=== PATIENT | male | born 1965 ===

== ENCOUNTER 2021-08-12 23:29 | Inpatient (IN) ==
[2021-08-13] MEDS ORDERED: SODIUM CHLORIDE 0.9% 1,000 ML IV STA ×2 (00:02→05:47)
[2021-08-13 01:57] LABS: Basophils % 0.4 % (0.0-0.8); Eosinophils % 1.6 % (0.00-10.9); Hematocrit 32.7 VOL% (42.0-52.0); Hemoglobin 10.7 GM/DL (14.0-18.0); Immature Granulocytes % 0.4 %; Immature Granulocytes Absolute 0.01 #; Lymphocytes # 0.4 10*3/uL (1.4-4.0); Mean Corpuscular HGB Conc 32.7 GM/DL (32-36); Mean Corpuscular Volume 84.7 FL (87-102); Mean Platelet Volume 10.7 FL (9.6-12.0); Monocytes % 3.6 % (1.7-12.7); Platelet Count 57 T/CUMM (130-400); Red Blood Count 3.86 MC/CUMM (3.8-5.5); Red Cell Distribution Width 15.1 % (9.3-17.3); White Blood Count 2.5 T/CUMM (4-12)
[2021-08-13] MEDS ORDERED: THIAMINE INJ 100 MG, FOLIC ACID INJ 1 MG, MAGNESIUM SULF INJ 2 GM, MULTIVITAMIN INJ 10 ... IV ONE (02:05)
[2021-08-13 02:10] LABS: INR 1.2; PT Patient Result 13.4 SECS (10.5-12.0)
[2021-08-13 02:13] LABS: Albumin 2.7 G/DL (3.4-5.0); Bilirubin,Total 0.6 MG/DL (0.20-1.00); Calcium 7.1 MG/DL (8.5-10.1); Osmolality,Calculated 265.5 MOS/KG (273-304); Potassium 3.2 MMOL/L (3.5-5.1); Total Protein 6.3 G/DL (6.4-8.2)
[2021-08-13] MEDS ORDERED: DEXTROSE 50% 25 GM/50 ML VIAL IV PRN (03:06)
[2021-08-13] MEDS ORDERED: GLUCAGON 1 MG VIAL IM PRN (03:06)
[2021-08-13] MEDS ORDERED: ONDANSETRON 4 MG/2 ML VIAL IV PRN (03:15)
[2021-08-13] MEDS ORDERED: LORazepam 2 MG/1 ML VIAL IV PRN (03:20)
[2021-08-13] MEDS ORDERED: MULTIVITAMIN INJ 10 ML, THIAMINE INJ 100 MG in SODIUM CHLORIDE 0.9% 1,000 ML IV SCH (03:30)
[2021-08-13] MEDS ORDERED: THIAMINE INJ 100 MG, MULTIVITAMIN INJ 10 ML in SODIUM CHLORIDE 0.9% 1,000 ML IV SCH (03:30)
[2021-08-13 04:01] LABS: Albumin 2.4 G/DL (3.4-5.0); Bilirubin,Total 0.6 MG/DL (0.20-1.00); Calcium 6.9 MG/DL (8.5-10.1); Potassium 3.7 MMOL/L (3.5-5.1); Total Protein 5.7 G/DL (6.4-8.2)
[2021-08-13 04:56] LABS: Eosinophils # 0.1 10*3/uL (0.0-0.87); Eosinophils % 1.6 % (0.00-10.9); Hematocrit 33.2 VOL% (42.0-52.0); Hemoglobin 10.6 GM/DL (14.0-18.0); Immature Granulocytes % 0.7 %; Immature Granulocytes Absolute 0.02 #; Lymphocytes # 0.5 10*3/uL (1.4-4.0); Lymphocytes % 15.6 % (21.2-54.2); Mean Corpuscular HGB Conc 31.9 GM/DL (32-36); Mean Corpuscular Volume 85.3 FL (87-102); Monocytes % 4.9 % (1.7-12.7); Neutrophils % 77.2 % (38.7-73.9); Platelet Count 60 T/CUMM (130-400); Red Blood Count 3.89 MC/CUMM (3.8-5.5); Red Cell Distribution Width 15.2 % (9.3-17.3); White Blood Count 3.1 T/CUMM (4-12)
[2021-08-13 05:58] LABS: Platelet Estimate Decreased
[2021-08-13 05:59] LABS: Anisocytosis 2+; Burr Cells Few; Ovalocytes Few; Poikilocytosis Slight
[2021-08-13 06:00] LABS: Anisocytosis 2+; Burr Cells Few; Platelet Estimate Decreased; Tear Drop Cells Few
[2021-08-13] MEDS ORDERED: SODIUM CHLORIDE 0.9% 1,000 ML IV ONE (08:33)
[2021-08-13] MEDS ORDERED: PANTOPRAZOLE 40 MG TABLET PO SCH (09:00)
[2021-08-13] MEDS ORDERED: ENOXAPARIN 40 MG/0.4 ML SYRINGE SUBCUT SCH (09:00)
[2021-08-13] MEDS: THIAMINE 200 MG/2 ML VIAL IV SCH ×2 (11:23→20:13)
[2021-08-13] MEDS: PANTOPRAZOLE 40 MG VIAL IV SCH (11:23)
[2021-08-13] MEDS: DEXT 5% NACL 0.9% KCL 20 MEQ 20 MEQ/1,000 ML BAG IV SCH ×2 (11:23→18:06)
[2021-08-13] MEDS: SULFAMETHOX/TRIMETHOPRIM 800-160 MG TABLET PO SCH (13:13)
[2021-08-13] MEDS: MEROPENEM 500 MG in SODIUM CHLORIDE 0.9% 100 ML IV SCH ×3 (13:14→20:16)
[2021-08-13] MEDS: KETOROLAC 30 MG/1 ML VIAL IV PRN (18:03)
[2021-08-13] MEDS: chlordiazePOXIDE 10 MG CAPSULE PO SCH ×2 (19:05→20:11)
[2021-08-14] MEDS: DEXT 5% NACL 0.9% KCL 20 MEQ 20 MEQ/1,000 ML BAG IV SCH ×3 (02:39→20:25)
[2021-08-14] MEDS: MEROPENEM 500 MG in SODIUM CHLORIDE 0.9% 100 ML IV SCH ×3 (04:01→18:22)
[2021-08-14 05:33] LABS: Basophils % 0.2 % (0.0-0.8); Eosinophils # 0.1 10*3/uL (0.0-0.87); Eosinophils % 1.1 % (0.00-10.9); Hematocrit 34.2 VOL% (42.0-52.0); Hemoglobin 11.1 GM/DL (14.0-18.0); Immature Granulocytes % 0.2 %; Immature Granulocytes Absolute 0.01 #; Lymphocytes # 0.4 10*3/uL (1.4-4.0); Lymphocytes % 10.1 % (21.2-54.2); Mean Corpuscular HGB Conc 32.5 GM/DL (32-36); Mean Corpuscular Volume 86.1 FL (87-102); Mean Platelet Volume 11.9 FL (9.6-12.0); Monocytes % 9.2 % (1.7-12.7); Neutrophils % 79.2 % (38.7-73.9); Red Blood Count 3.97 MC/CUMM (3.8-5.5); Red Cell Distribution Width 15.6 % (9.3-17.3)
[2021-08-14 05:37] LABS: Platelet Count 52 T/CUMM (130-400); White Blood Count 4.4 T/CUMM (4-12)
[2021-08-14 06:08] LABS: Anisocytosis 1+; Burr Cells Few; Platelet Estimate Decreased
[2021-08-14 06:09] LABS: Ovalocytes Few
[2021-08-14 06:12] LABS: Albumin 2.5 G/DL (3.4-5.0); Bilirubin,Total 1.9 MG/DL (0.20-1.00); Potassium 4.1 MMOL/L (3.5-5.1); Total Protein 5.9 G/DL (6.4-8.2)
[2021-08-14] MEDS: PANTOPRAZOLE 40 MG VIAL IV SCH (08:21)
[2021-08-14] MEDS: SULFAMETHOX/TRIMETHOPRIM 800-160 MG TABLET PO SCH (08:21)
[2021-08-14] MEDS: THIAMINE 200 MG/2 ML VIAL IV SCH ×2 (08:22→20:21)
[2021-08-14] MEDS: chlordiazePOXIDE 10 MG CAPSULE PO SCH ×2 (08:24→12:47)
[2021-08-14] MEDS ORDERED: LACTULOSE 20 GM/30 ML UDCUP PO SCH (09:30)
[2021-08-14] MEDS: KETOROLAC 30 MG/1 ML VIAL IV PRN ×2 (11:40→18:22)
[2021-08-14 11:54] LABS: % Iron Saturation 51.1 % (18-50)
[2021-08-14 12:36] LABS: Hepatitis B Core IgM Quant 0.08 Index; Hepatitis B Surface Ag Quant < 0.10 Index; Hepatitis B Surface Ag Result Non-Reactive (NonReactive); Hepatitis C Virus Ab Quant 0.11 Index; Hepatitis C Virus Ab Result Non-Reactive (NonReactive)
[2021-08-14] MEDS: LACTULOSE 20 GM/30 ML UDCUP PO SCH ×2 (15:42→20:20)
[2021-08-14] MEDS ORDERED: SODIUM CHLORIDE 0.65% NASAL SPRAY 45 ML BOTTLE BOTH NARES PRN (21:40)
[2021-08-14 22:02] LABS: Bacteria,Urine Occasional /HPF (Few); Bilirubin,Urine Negative (Negative); Blood, Urine Small mg/dL (Negative); Glucose,Urine (UA) 50 mg/dL (Negative); Hyaline Casts,Urine 1 /LPF (0-3); Ketones,Urine Negative (Negative); Mucus,Urine Occasional /LPF (Occasional); Nitrite,Urine Negative (Negative); Protein,Urine Negative; RBC,Urine 1 /HPF (0-4); Squamous Epithelial Cell,Urine Occasional /HPF (0-10); Urine Appearance CLEAR (Clear); Urine Color Yellow (Yellow); Urine Specific Gravity 1.029 (1.001-1.035)
[2021-08-15] MEDS: MEROPENEM 500 MG in SODIUM CHLORIDE 0.9% 100 ML IV SCH ×2 (00:45→08:52)
[2021-08-15] MEDS: DEXT 5% NACL 0.9% KCL 20 MEQ 20 MEQ/1,000 ML BAG IV SCH ×2 (04:50→16:07)
[2021-08-15 05:00] LABS: Basophils % 0.6 % (0.0-0.8); Eosinophils # 0.1 10*3/uL (0.0-0.87); Eosinophils % 1.5 % (0.00-10.9); Hematocrit 32.1 VOL% (42.0-52.0); Hemoglobin 10.4 GM/DL (14.0-18.0); Immature Granulocytes % 0.3 %; Immature Granulocytes Absolute 0.01 #; Lymphocytes # 0.4 10*3/uL (1.4-4.0); Lymphocytes % 12.3 % (21.2-54.2); Mean Corpuscular HGB Conc 32.4 GM/DL (32-36); Mean Platelet Volume 12.4 FL (9.6-12.0); Monocytes % 8.6 % (1.7-12.7); Neutrophils % 76.7 % (38.7-73.9); Platelet Count 45 T/CUMM (130-400); Red Blood Count 3.69 MC/CUMM (3.8-5.5); Red Cell Distribution Width 15.4 % (9.3-17.3); White Blood Count 3.3 T/CUMM (4-12)
[2021-08-15 05:33] LABS: Hypochromasia Slight; Microcytosis Slight; Ovalocytes Slight; Platelet Estimate Decreased
[2021-08-15 05:56] LABS: Albumin 2.2 G/DL (3.4-5.0); Bilirubin,Total 1.4 MG/DL (0.20-1.00); Osmolality,Calculated 286.4 MOS/KG (273-304); Total Protein 5.7 G/DL (6.4-8.2)
[2021-08-15] MEDS: LACTULOSE 20 GM/30 ML UDCUP PO SCH ×3 (08:53→20:45)
[2021-08-15] MEDS: PANTOPRAZOLE 40 MG VIAL IV SCH (08:53)
[2021-08-15] MEDS: THIAMINE 200 MG/2 ML VIAL IV SCH ×2 (08:53→20:45)
[2021-08-15] MEDS: SULFAMETHOX/TRIMETHOPRIM 800-160 MG TABLET PO SCH (08:53)
[2021-08-15] MEDS ORDERED: MORPHINE 2 MG/1 ML SYRINGE IV ONE (13:29)
[2021-08-15] MEDS: methylPREDNISolone SOD SUC 40 MG/1 ML VIAL IV SCH (18:40)
[2021-08-16] MEDS: DEXT 5% NACL 0.9% KCL 20 MEQ 20 MEQ/1,000 ML BAG IV SCH ×2 (00:36→09:36)
[2021-08-16] MEDS: methylPREDNISolone SOD SUC 40 MG/1 ML VIAL IV SCH ×2 (03:01→09:43)
[2021-08-16 05:41] LABS: Basophils % 0.2 % (0.0-0.8); Eosinophils % 0.2 % (0.00-10.9); Hematocrit 34.2 VOL% (42.0-52.0); Hemoglobin 11.2 GM/DL (14.0-18.0); Immature Granulocytes % 0.7 %; Immature Granulocytes Absolute 0.03 #; Lymphocytes # 0.4 10*3/uL (1.4-4.0); Lymphocytes % 9.1 % (21.2-54.2); Mean Corpuscular HGB Conc 32.7 GM/DL (32-36); Mean Corpuscular Volume 85.3 FL (87-102); Mean Platelet Volume 12.3 FL (9.6-12.0); Monocytes % 3.6 % (1.7-12.7); Neutrophils % 86.2 % (38.7-73.9); Platelet Count 55 T/CUMM (130-400); Red Blood Count 4.01 MC/CUMM (3.8-5.5); Red Cell Distribution Width 14.9 % (9.3-17.3); White Blood Count 4.4 T/CUMM (4-12)
[2021-08-16 06:02] LABS: Albumin 2.3 G/DL (3.4-5.0); Bilirubin,Total 1.3 MG/DL (0.20-1.00); Calcium 7.4 MG/DL (8.5-10.1); Osmolality,Calculated 281.8 MOS/KG (273-304); Potassium 4.6 MMOL/L (3.5-5.1); Total Protein 6.1 G/DL (6.4-8.2)
[2021-08-16 06:13] LABS: Hypochromasia Slight; Microcytosis Slight; Platelet Estimate Decreased
[2021-08-16] MEDS: SULFAMETHOX/TRIMETHOPRIM 800-160 MG TABLET PO SCH (09:37)
[2021-08-16] MEDS: LACTULOSE 20 GM/30 ML UDCUP PO SCH (09:37)
[2021-08-16] MEDS: PANTOPRAZOLE 40 MG VIAL IV SCH (09:39)
[2021-08-16] MEDS: THIAMINE 200 MG/2 ML VIAL IV SCH (09:42)
[2021-08-16 12:12] VITALS: BP 151/70
== END 2021-08-16 14:25 | disposition hospice, home (50) | DRG 40 ==
LOC: EDBD → EDUNIT# → N.EDINP 23:29 → N.ED 23:29 → N.4E 08-13 05:08 → SUATTDRO 08-14 11:09
PROVIDERS: ADMIT Hospitalist; ATTEND Internal Medicine Geriatric Medicine

== ENCOUNTER 2021-09-07 19:05 | Inpatient (IN) ==
[2021-09-07] MEDS ORDERED: ONDANSETRON 4 MG/2 ML VIAL IV STA (20:00)
[2021-09-07 20:18] LABS: Basophils % 0.2 % (0.0-0.8); Eosinophils # 0.1 10*3/uL (0.0-0.87); Eosinophils % 2.2 % (0.00-10.9); Hematocrit 25.9 VOL% (42.0-52.0); Hemoglobin 8.4 GM/DL (14.0-18.0); Immature Granulocytes % 0.9 %; Immature Granulocytes Absolute 0.05 #; Lymphocytes # 0.4 10*3/uL (1.4-4.0); Lymphocytes % 7.6 % (21.2-54.2); Mean Corpuscular HGB Conc 32.4 GM/DL (32-36); Mean Corpuscular Volume 87.8 FL (87-102); Mean Platelet Volume 11.8 FL (9.6-12.0); Monocytes % 6.2 % (1.7-12.7); Neutrophils % 82.9 % (38.7-73.9); Platelet Count 74 T/CUMM (130-400); Red Blood Count 2.95 MC/CUMM (3.8-5.5); Red Cell Distribution Width 15.2 % (9.3-17.3); White Blood Count 5.8 T/CUMM (4-12)
[2021-09-07 20:49] LABS: Lactic Acid 1.7 MMOL/L (0.4-2.0)
[2021-09-07 20:53] LABS: Alanine Aminotransferase 34 U/L (16-61); Albumin 1.7 G/DL (3.4-5.0); Alkaline Phosphatase 135 U/L (45-117); Amylase 20 U/L (25-115); Aspartate Amino Transferase 49 U/L (0-37); Blood Urea Nitrogen 34 MG/DL (7-18); Carbon Dioxide 25 MMOL/L (21-32); Estimated Glom Filtration Rate 78 ML/MIN; Glucose 80 MG/DL (74-106); Osmolality,Calculated 283.5 MOS/KG (273-304); Potassium 3.3 MMOL/L (3.5-5.1); Sodium 139 MMOL/L (136-145); Total Protein 5.2 G/DL (6.4-8.2)
[2021-09-07 21:17] LABS: Bilirubin,Urine Negative (Negative); Blood, Urine Large mg/dL (Negative); Glucose,Urine (UA) Negative (Negative); Ketones,Urine Negative (Negative); Mucus,Urine Occasional /LPF (Occasional); Nitrite,Urine Negative (Negative); Protein,Urine 100 MG/DL; RBC,Urine 23 /HPF (0-4); Squamous Epithelial Cell,Urine Occasional /HPF (0-10); Urine Appearance CLOUDY (Clear); Urine Color Red (Yellow); Urine Specific Gravity 1.012 (1.001-1.035); Urine Urobilinogen < 2.0 EU/DL (0.2-1.0)
[2021-09-07 21:50] LABS: Barbiturates Screen,Urine Negative (Negative); Benzodiazepines Screen,Urine Negative (Negative); Cannabinoid Screen,Urine Negative (Negative); Opiate Screen,Urine Negative (Negative); Phencyclidine Screen,Urine Negative (Negative)
[2021-09-07] MEDS ORDERED: cefTRIAXone 1,000 MG in SODIUM CHLORIDE 0.9% 100 ML IV STA (22:04)
[2021-09-07] MEDS ORDERED: ZALEPLON 5 MG CAPSULE PO PRN (23:29)
[2021-09-07] MEDS ORDERED: ONDANSETRON 4 MG/2 ML VIAL IV PRN (23:29)
[2021-09-07] MEDS ORDERED: GLUCAGON 1 MG VIAL IM PRN ×2 (23:29)
[2021-09-07] MEDS ORDERED: DEXTROSE 50% 25 GM/50 ML VIAL IV PRN ×2 (23:29)
[2021-09-07] MEDS ORDERED: DOCUSATE SODIUM 100 MG CAPSULE PO PRN (23:37)
[2021-09-08] MEDS: ALBUTEROL/IPRATROPIUM 3 ML NEB RESP TX SCH ×4 (00:09→19:40)
[2021-09-08] MEDS ORDERED: ENOXAPARIN 40 MG/0.4 ML SYRINGE SUBCUT SCH (07:00)
[2021-09-08 07:11] LABS: Basophils % 0.4 % (0.0-0.8); Eosinophils # 0.1 10*3/uL (0.0-0.87); Hematocrit 25.1 VOL% (42.0-52.0); Hemoglobin 8.2 GM/DL (14.0-18.0); Immature Granulocytes % 0.8 %; Immature Granulocytes Absolute 0.02 #; Lymphocytes # 0.3 10*3/uL (1.4-4.0); Lymphocytes % 9.4 % (21.2-54.2); Mean Corpuscular HGB Conc 32.7 GM/DL (32-36); Mean Platelet Volume 11.8 FL (9.6-12.0); Monocytes % 6.8 % (1.7-12.7); Neutrophils % 79.6 % (38.7-73.9); Platelet Count 58 T/CUMM (130-400); Red Blood Count 2.82 MC/CUMM (3.8-5.5); Red Cell Distribution Width 14.9 % (9.3-17.3); White Blood Count 2.7 T/CUMM (4-12)
[2021-09-08 07:28] LABS: Albumin 1.5 G/DL (3.4-5.0); Bilirubin,Total 2.3 MG/DL (0.20-1.00); Calcium 7.1 MG/DL (8.5-10.1); Osmolality,Calculated 284.4 MOS/KG (273-304); Potassium 3.4 MMOL/L (3.5-5.1)
[2021-09-08 07:32] LABS: Eosinophils 1 % (0-10); Hypochromasia 1+; Lymphocytes 4 % (20-55); Microcytosis 1+; Ovalocytes Slight; Platelet Estimate Decreased; Segmented Neutrophils 89 % (50-85); Total Cells Counted 100
[2021-09-08] MEDS: INSULIN REGULAR 100 UNIT/ML SUBCUT SCH ×4 (08:06→21:19)
[2021-09-08] MEDS ORDERED: BICTEGRAV EMTRICIT TENOFOV ALA PO SCH (09:00)
[2021-09-08] MEDS ORDERED: CLOTRIMAZOLE 1% CREAM 15 GM TUBE TOP SCH (09:00)
[2021-09-08] MEDS: GABAPENTIN 300 MG CAPSULE PO SCH ×2 (09:25→20:35)
[2021-09-08] MEDS: THIAMINE 100 MG TABLET PO SCH ×2 (09:25→20:35)
[2021-09-08] MEDS: LINEZOLID 600 MG TABLET PO SCH ×2 (09:25→20:35)
[2021-09-08] MEDS: OXYBUTYNIN XL 10 MG TABLET PO SCH (09:25)
[2021-09-08] MEDS: FUROSEMIDE 40 MG/4 ML VIAL IV SCH ×2 (09:26→17:10)
[2021-09-08] MEDS: PANTOPRAZOLE 40 MG TABLET PO SCH (09:26)
[2021-09-08] MEDS: LACTULOSE 20 GM/30 ML UDCUP PO SCH ×2 (09:26→20:36)
[2021-09-08] MEDS: FLUCONAZOLE 200 MG TABLET PO SCH (11:15)
[2021-09-08] MEDS: MICONAZOLE 2% CREAM 57 GM TUBE TOP SCH ×2 (11:37→20:35)
[2021-09-08] MEDS: SPIRONOLACTONE 25 MG TABLET PO SCH (11:44)
[2021-09-08] MEDS: cefTRIAXone 1,000 MG in SODIUM CHLORIDE 0.9% 100 ML IV SCH (12:16)
[2021-09-08] MEDS: MENTHOL/ZINC OXIDE OINT 71 GM JAR TOP SCH ×2 (17:10→20:36)
[2021-09-09] MEDS: ALBUTEROL/IPRATROPIUM 3 ML NEB RESP TX SCH ×4 (01:11→19:23)
[2021-09-09 07:41] LABS: Basophils % 0.4 % (0.0-0.8); Eosinophils # 0.1 10*3/uL (0.0-0.87); Eosinophils % 2.1 % (0.00-10.9); Hematocrit 25.1 VOL% (42.0-52.0); Hemoglobin 8.1 GM/DL (14.0-18.0); Immature Granulocytes % 0.4 %; Immature Granulocytes Absolute 0.01 #; Lymphocytes # 0.3 10*3/uL (1.4-4.0); Lymphocytes % 12.8 % (21.2-54.2); Mean Corpuscular HGB Conc 32.3 GM/DL (32-36); Mean Corpuscular Volume 89.6 FL (87-102); Mean Platelet Volume 11.6 FL (9.6-12.0); Monocytes % 8.7 % (1.7-12.7); Neutrophils % 75.6 % (38.7-73.9); Platelet Count 55 T/CUMM (130-400); Red Cell Distribution Width 15.1 % (9.3-17.3); White Blood Count 2.4 T/CUMM (4-12)
[2021-09-09 08:04] LABS: Hypochromasia Slight; Ovalocytes Slight; Platelet Estimate Decreased
[2021-09-09 08:08] LABS: Calcium 7.1 MG/DL (8.5-10.1); Osmolality,Calculated 285.4 MOS/KG (273-304); Potassium 3.4 MMOL/L (3.5-5.1)
[2021-09-09] MEDS ORDERED: POTASSIUM CHLORIDE 10 MEQ TABLET PO ONE (08:36)
[2021-09-09] MEDS: INSULIN REGULAR 100 UNIT/ML SUBCUT SCH ×4 (08:45→21:47)
[2021-09-09] MEDS: OXYBUTYNIN XL 10 MG TABLET PO SCH (09:18)
[2021-09-09] MEDS: LINEZOLID 600 MG TABLET PO SCH ×2 (09:18→21:48)
[2021-09-09] MEDS: THIAMINE 100 MG TABLET PO SCH ×2 (09:18→21:48)
[2021-09-09] MEDS: GABAPENTIN 300 MG CAPSULE PO SCH ×2 (09:19→21:48)
[2021-09-09] MEDS: SPIRONOLACTONE 25 MG TABLET PO SCH ×2 (09:19→21:48)
[2021-09-09] MEDS: FLUCONAZOLE 200 MG TABLET PO SCH (09:19)
[2021-09-09] MEDS: MENTHOL/ZINC OXIDE OINT 71 GM JAR TOP SCH ×2 (09:19→21:49)
[2021-09-09] MEDS: PANTOPRAZOLE 40 MG TABLET PO SCH (09:19)
[2021-09-09] MEDS: LACTULOSE 20 GM/30 ML UDCUP PO SCH ×2 (09:22→21:49)
[2021-09-09] MEDS: MICONAZOLE 2% CREAM 57 GM TUBE TOP SCH ×2 (09:22→21:49)
[2021-09-09] MEDS: SODIUM CHLORIDE 0.65% NASAL SPRAY 45 ML BOTTLE BOTH NARES SCH ×4 (09:24→21:48)
[2021-09-09] MEDS: FUROSEMIDE 40 MG/4 ML VIAL IV SCH ×2 (11:39→17:08)
[2021-09-09] MEDS: cefTRIAXone 1,000 MG in SODIUM CHLORIDE 0.9% 100 ML IV SCH (14:08)
[2021-09-09] MEDS: ALBUMIN 25% 25 GM/100 ML VIAL IV SCH ×2 (15:37→21:57)
[2021-09-09] MEDS: ACETAMINOPHEN 325 MG TABLET PO PRN (21:51)
[2021-09-10] MEDS: ACETAMINOPHEN 325 MG TABLET PO PRN ×2 (01:55→22:00)
[2021-09-10] MEDS: SODIUM CHLORIDE 0.65% NASAL SPRAY 45 ML BOTTLE BOTH NARES SCH ×6 (01:55→22:01)
[2021-09-10] MEDS: ALBUTEROL/IPRATROPIUM 3 ML NEB RESP TX SCH ×4 (07:52→19:46)
[2021-09-10 09:19] LABS: Eosinophils # 0.1 10*3/uL (0.0-0.87); Hematocrit 24.8 VOL% (42.0-52.0); Hemoglobin 7.9 GM/DL (14.0-18.0); Immature Granulocytes % 1.2 %; Immature Granulocytes Absolute 0.02 #; Lymphocytes # 0.3 10*3/uL (1.4-4.0); Lymphocytes % 20.7 % (21.2-54.2); Mean Corpuscular HGB Conc 31.9 GM/DL (32-36); Mean Corpuscular Volume 89.5 FL (87-102); Mean Platelet Volume 11.5 FL (9.6-12.0); Monocytes % 8.5 % (1.7-12.7); Neutrophils % 66.6 % (38.7-73.9); Red Blood Count 2.77 MC/CUMM (3.8-5.5)
[2021-09-10 09:21] LABS: Platelet Count 60 T/CUMM (130-400); White Blood Count 1.6 T/CUMM (4-12)
[2021-09-10] MEDS: GABAPENTIN 300 MG CAPSULE PO SCH ×2 (09:32→22:00)
[2021-09-10] MEDS: LINEZOLID 600 MG TABLET PO SCH (09:32)
[2021-09-10] MEDS: THIAMINE 100 MG TABLET PO SCH ×2 (09:32→22:00)
[2021-09-10] MEDS: OXYBUTYNIN XL 10 MG TABLET PO SCH (09:32)
[2021-09-10] MEDS: PANTOPRAZOLE 40 MG TABLET PO SCH (09:33)
[2021-09-10] MEDS: SPIRONOLACTONE 25 MG TABLET PO SCH ×2 (09:33→22:01)
[2021-09-10] MEDS: FLUCONAZOLE 200 MG TABLET PO SCH (09:33)
[2021-09-10] MEDS: LACTULOSE 20 GM/30 ML UDCUP PO SCH ×3 (09:33→22:01)
[2021-09-10] MEDS: MENTHOL/ZINC OXIDE OINT 71 GM JAR TOP SCH ×2 (09:34→22:01)
[2021-09-10] MEDS: MICONAZOLE 2% CREAM 57 GM TUBE TOP SCH ×2 (09:34→22:01)
[2021-09-10] MEDS: INSULIN REGULAR 100 UNIT/ML SUBCUT SCH ×4 (09:38→22:02)
[2021-09-10 09:40] LABS: Albumin 2.1 G/DL (3.4-5.0); Bilirubin,Total 0.9 MG/DL (0.20-1.00); Calcium 7.5 MG/DL (8.5-10.1); Osmolality,Calculated 280.5 MOS/KG (273-304); Potassium 3.1 MMOL/L (3.5-5.1); Total Protein 6.1 G/DL (6.4-8.2)
[2021-09-10 09:58] LABS: Anisocytosis 3+; Band Neutrophils 14 % (0-10); Eosinophils 4 % (0-10); Lymphocytes 17 % (20-55); Nucleated Red Blood Cells 1 (0-5); Platelet Estimate Decreased; Segmented Neutrophils 57 % (50-85); Total Cells Counted 100
[2021-09-10 09:59] LABS: Macrocytosis Slight; Ovalocytes Few
[2021-09-10] MEDS ORDERED: POTASSIUM CHLORIDE 20 MEQ TABLET PO ONE ×2 (11:19→17:22)
[2021-09-10] MEDS: FUROSEMIDE 40 MG/4 ML VIAL IV SCH ×2 (11:27→16:43)
[2021-09-10] MEDS: ALBUMIN 25% 25 GM/100 ML VIAL IV SCH ×2 (11:27→22:08)
[2021-09-10] MEDS ORDERED: MAGNESIUM SULF RIDER 2 GM/50 ML PREMIX IV ONE (17:22)
[2021-09-11] MEDS: SODIUM CHLORIDE 0.65% NASAL SPRAY 45 ML BOTTLE BOTH NARES SCH ×6 (00:43→21:18)
[2021-09-11] MEDS: ALBUTEROL/IPRATROPIUM 3 ML NEB RESP TX SCH ×4 (01:32→20:21)
[2021-09-11 06:18] LABS: Calcium 7.6 MG/DL (8.5-10.1); Osmolality,Calculated 281.4 MOS/KG (273-304); Potassium 3.4 MMOL/L (3.5-5.1)
[2021-09-11 06:22] LABS: Basophils % 0.6 % (0.0-0.8); Eosinophils % 2.4 % (0.00-10.9); Hematocrit 23.6 VOL% (42.0-52.0); Hemoglobin 7.6 GM/DL (14.0-18.0); Immature Granulocytes % 1.2 %; Immature Granulocytes Absolute 0.02 #; Lymphocytes # 0.3 10*3/uL (1.4-4.0); Mean Corpuscular HGB Conc 32.2 GM/DL (32-36); Mean Corpuscular Volume 89.1 FL (87-102); Mean Platelet Volume 10.5 FL (9.6-12.0); Monocytes % 10.7 % (1.7-12.7); Neutrophils % 66.1 % (38.7-73.9); Platelet Count 62 T/CUMM (130-400); Red Blood Count 2.65 MC/CUMM (3.8-5.5); Red Cell Distribution Width 14.7 % (9.3-17.3); White Blood Count 1.7 T/CUMM (4-12)
[2021-09-11 07:12] LABS: Band Neutrophils 16 % (0-10); Eosinophils 2 % (0-10); Lymphocytes 18 % (20-55); Segmented Neutrophils 54 % (50-85); Total Cells Counted 100
[2021-09-11 07:13] LABS: Anisocytosis 1+; Ovalocytes Few; Platelet Estimate Decreased; Tear Drop Cells Few
[2021-09-11] MEDS: INSULIN REGULAR 100 UNIT/ML SUBCUT SCH ×4 (08:13→21:18)
[2021-09-11] MEDS: POTASSIUM CHLORIDE 20 MEQ TABLET PO PRN (08:14)
[2021-09-11] MEDS: PANTOPRAZOLE 40 MG TABLET PO SCH (08:14)
[2021-09-11] MEDS: SPIRONOLACTONE 25 MG TABLET PO SCH (08:14)
[2021-09-11] MEDS: GABAPENTIN 300 MG CAPSULE PO SCH ×2 (08:14→21:17)
[2021-09-11] MEDS: FLUCONAZOLE 200 MG TABLET PO SCH (08:14)
[2021-09-11] MEDS: THIAMINE 100 MG TABLET PO SCH ×2 (08:14→21:16)
[2021-09-11] MEDS: OXYBUTYNIN XL 10 MG TABLET PO SCH (08:14)
[2021-09-11] MEDS: LACTULOSE 20 GM/30 ML UDCUP PO SCH ×3 (08:15→21:17)
[2021-09-11] MEDS: MICONAZOLE 2% CREAM 57 GM TUBE TOP SCH ×2 (08:19→21:17)
[2021-09-11] MEDS: MENTHOL/ZINC OXIDE OINT 71 GM JAR TOP SCH ×2 (08:19→21:17)
[2021-09-11] MEDS ORDERED: POTASSIUM CHLORIDE 20 MEQ TABLET PO ONE (09:20)
[2021-09-11] MEDS: FUROSEMIDE 40 MG/4 ML VIAL IV SCH ×2 (09:35→15:55)
[2021-09-11] MEDS: ALBUMIN 25% 25 GM/100 ML VIAL IV SCH ×2 (09:36→21:16)
[2021-09-11] MEDS: AMOXICILLIN/CLAV 875 MG TABLET PO SCH ×2 (11:13→21:17)
[2021-09-11] MEDS: ACETAMINOPHEN 325 MG TABLET PO PRN (19:24)
[2021-09-11] MEDS: SPIRONOLACTONE 50 MG TABLET PO SCH (21:16)
[2021-09-12] MEDS: SODIUM CHLORIDE 0.65% NASAL SPRAY 45 ML BOTTLE BOTH NARES SCH ×4 (00:49→12:06)
[2021-09-12] MEDS: ALBUTEROL/IPRATROPIUM 3 ML NEB RESP TX SCH ×3 (01:46→13:47)
[2021-09-12 06:42] LABS: Basophils % 0.6 % (0.0-0.8); Eosinophils % 2.2 % (0.00-10.9); Hematocrit 24.7 VOL% (42.0-52.0); Hemoglobin 7.9 GM/DL (14.0-18.0); Immature Granulocytes % 2.2 %; Immature Granulocytes Absolute 0.04 #; Lymphocytes # 0.3 10*3/uL (1.4-4.0); Lymphocytes % 14.6 % (21.2-54.2); Mean Corpuscular Volume 90.1 FL (87-102); Mean Platelet Volume 11.5 FL (9.6-12.0); Monocytes % 10.1 % (1.7-12.7); Neutrophils % 70.3 % (38.7-73.9); Platelet Count 63 T/CUMM (130-400); Red Blood Count 2.74 MC/CUMM (3.8-5.5); White Blood Count 1.8 T/CUMM (4-12)
[2021-09-12 07:07] LABS: Acanthocytes Few; Anisocytosis 2+; Band Neutrophils 20 % (0-10); Eosinophils 2 % (0-10); Lymphocytes 9 % (20-55); Platelet Estimate Decreased; Poikilocytosis 1+; Segmented Neutrophils 66 % (50-85); Total Cells Counted 100
[2021-09-12 07:08] LABS: Macrocytosis Slight
[2021-09-12 07:17] LABS: Calcium 8.1 MG/DL (8.5-10.1); Osmolality,Calculated 280.4 MOS/KG (273-304); Potassium 3.4 MMOL/L (3.5-5.1)
[2021-09-12] MEDS ORDERED: MAGNESIUM SULF RIDER 4 GM/100 ML PREMIX IV PRN (07:51)
[2021-09-12] MEDS ORDERED: MAGNESIUM SULF RIDER 2 GM/50 ML PREMIX IV PRN (07:51)
[2021-09-12] MEDS ORDERED: MAGNESIUM SULF RIDER 2 GM/50 ML PREMIX IV ONE (08:28)
[2021-09-12] MEDS ORDERED: POTASSIUM CHLORIDE 20 MEQ TABLET PO ONE (08:28)
[2021-09-12] MEDS: INSULIN REGULAR 100 UNIT/ML SUBCUT SCH ×3 (09:07→15:52)
[2021-09-12] MEDS: ALBUMIN 25% 25 GM/100 ML VIAL IV SCH (10:11)
[2021-09-12] MEDS: FUROSEMIDE 40 MG/4 ML VIAL IV SCH ×2 (10:11→15:52)
[2021-09-12] MEDS: LACTULOSE 20 GM/30 ML UDCUP PO SCH ×2 (10:12→15:51)
[2021-09-12] MEDS: AMOXICILLIN/CLAV 875 MG TABLET PO SCH (10:12)
[2021-09-12] MEDS: PANTOPRAZOLE 40 MG TABLET PO SCH (10:12)
[2021-09-12] MEDS: OXYBUTYNIN XL 10 MG TABLET PO SCH (10:12)
[2021-09-12] MEDS: GABAPENTIN 300 MG CAPSULE PO SCH (10:13)
[2021-09-12] MEDS: FLUCONAZOLE 200 MG TABLET PO SCH (10:13)
[2021-09-12] MEDS: SPIRONOLACTONE 50 MG TABLET PO SCH (10:13)
[2021-09-12] MEDS: THIAMINE 100 MG TABLET PO SCH (10:13)
[2021-09-12] MEDS: MENTHOL/ZINC OXIDE OINT 71 GM JAR TOP SCH (10:14)
[2021-09-12] MEDS: MICONAZOLE 2% CREAM 57 GM TUBE TOP SCH (10:14)
[2021-09-12] MEDS: POTASSIUM CHLORIDE 20 MEQ TABLET PO PRN (13:36)
[2021-09-12 15:51] VITALS: BP 127/77
== END 2021-09-12 16:10 | DRG 425 ==
LOC: N.ED 19:05 → N.EDINP 19:05 → SUATTDRO 23:29 → N.TELEN 09-08 02:11 → SUATTDRO 09-08 13:02
PROVIDERS: ADMIT Internal Medicine; ATTEND Internal Medicine

== ENCOUNTER 2021-10-16 08:18 | Inpatient (IN) ==
[2021-10-16] MEDS ORDERED: NOREPINEPHRINE 4 MG/4 ML VIAL IV ONE (08:42)
[2021-10-16] MEDS ORDERED: NOREPINEPHRINE 16 MG in SODIUM CHLORIDE 0.9% 234 ML IV PRN (08:44)
[2021-10-16 09:21] LABS: Basophils % 0.2 % (0.0-0.8); Hematocrit 34.4 VOL% (42.0-52.0); Hemoglobin 11.1 GM/DL (14.0-18.0); Immature Granulocytes Absolute 0.97 #; Lymphocytes # 0.4 10*3/uL (1.4-4.0); Lymphocytes % 2.1 % (21.2-54.2); Mean Corpuscular HGB Conc 32.3 GM/DL (32-36); Mean Corpuscular Volume 96.6 FL (87-102); Mean Platelet Volume 12.5 FL (9.6-12.0); Monocytes % 3.5 % (1.7-12.7); Neutrophils % 89.2 % (38.7-73.9); Platelet Count 62 T/CUMM (130-400); Red Blood Count 3.56 MC/CUMM (3.8-5.5); Red Cell Distribution Width 17.8 % (9.3-17.3); White Blood Count 19.2 T/CUMM (4-12)
[2021-10-16 09:31] LABS: INR 1.4; PT Patient Result 15.8 SECS (10.5-12.0); Partial Thromboplastin Time 34.7 SECS (23.8-32.1)
[2021-10-16 09:44] LABS: Bacteria,Urine Few /HPF (Few); Bilirubin,Urine Negative (Negative); Blood, Urine Large mg/dL (Negative); Glucose,Urine (UA) Negative (Negative); Ketones,Urine Negative (Negative); Mucus,Urine Few /LPF (Occasional); Nitrite,Urine Negative (Negative); Protein,Urine 100 MG/DL; RBC,Urine 142 /HPF (0-4); Squamous Epithelial Cell,Urine Occasional /HPF (0-10); Urine Appearance CLOUDY (Clear); Urine Color Amber (Yellow); Urine Specific Gravity 1.011 (1.001-1.035); Urine Urobilinogen < 2.0 EU/DL (0.2-1.0)
[2021-10-16 09:51] LABS: Band Neutrophils 13 % (0-10); Lymphocytes 2 % (20-55); Metamyelocytes 4 %; Myelocytes 4 %; Segmented Neutrophils 71 % (50-85); Total Cells Counted 100
[2021-10-16 09:52] LABS: Acanthocytes Few; Anisocytosis 1+; Elliptocytes 1+; Microcytosis 1+
[2021-10-16 09:53] LABS: Burr Cells Slight; Platelet Estimate Decreased
[2021-10-16] MEDS ORDERED: ALBUTEROL 2.5 MG/3 ML NEB RESP TX PRN (10:02)
[2021-10-16] MEDS ORDERED: GLUCAGON 1 MG VIAL IM PRN (10:02)
[2021-10-16] MEDS ORDERED: ONDANSETRON 4 MG/2 ML VIAL IV PRN (10:02)
[2021-10-16] MEDS ORDERED: DEXTROSE 50% 25 GM/50 ML SYRINGE IV PRN (10:09)
[2021-10-16 10:13] LABS: Albumin 2.5 G/DL (3.4-5.0); Bilirubin,Total 1.6 MG/DL (0.20-1.00); Calcium 7.9 MG/DL (8.5-10.1); Potassium 3.8 MMOL/L (3.5-5.1)
[2021-10-16 10:28] VITALS: BP 87/52
[2021-10-16] MEDS ORDERED: ENOXAPARIN 30 MG/0.3 ML SYRINGE SUBCUT SCH (10:30)
[2021-10-16] MEDS ORDERED: CEFEPIME 1,000 MG in SODIUM CHLORIDE 0.9% 100 ML IV SCH (10:30)
[2021-10-16] MEDS: CEFEPIME 1,000 MG in SODIUM CHLORIDE 0.9% 100 ML IV SCH ×2 (10:49→22:28)
[2021-10-16] MEDS: NOREPINEPHRINE 8 MG in SODIUM CHLORIDE 0.9% 242 ML IV PRN ×2 (11:08→17:36)
[2021-10-16] MEDS: SODIUM CHLORIDE 0.9% 1,000 ML IV SCH ×3 (11:43→22:24)
[2021-10-16] MEDS ORDERED: GENTAMICIN INJ 200 MG in SODIUM CHLORIDE 0.9% 100 ML IV ONE (12:00)
[2021-10-16] MEDS: INSULIN NPH 100 UNIT/ML SUBCUT SCH (17:36)
[2021-10-16] MEDS: GABAPENTIN 300 MG CAPSULE PO SCH (20:49)
[2021-10-16] MEDS: THIAMINE 100 MG TABLET PO SCH (20:49)
[2021-10-17] MEDS: NOREPINEPHRINE 8 MG in SODIUM CHLORIDE 0.9% 242 ML IV PRN ×2 (04:09→16:37)
[2021-10-17 06:17] LABS: Basophils % 0.1 % (0.0-0.8); Eosinophils % 0.1 % (0.00-10.9); Hematocrit 30.1 VOL% (42.0-52.0); Hemoglobin 9.9 GM/DL (14.0-18.0); Immature Granulocytes Absolute 1.09 #; Lymphocytes # 0.9 10*3/uL (1.4-4.0); Lymphocytes % 5.9 % (21.2-54.2); Mean Corpuscular HGB Conc 32.9 GM/DL (32-36); Mean Corpuscular Volume 92.6 FL (87-102); Mean Platelet Volume 11.1 FL (9.6-12.0); Monocytes % 4.9 % (1.7-12.7); Red Blood Count 3.25 MC/CUMM (3.8-5.5); Red Cell Distribution Width 18.2 % (9.3-17.3); White Blood Count 15.7 T/CUMM (4-12)
[2021-10-17] MEDS: SODIUM CHLORIDE 0.9% 1,000 ML IV SCH ×4 (06:44→19:47)
[2021-10-17 07:02] LABS: Calcium 7.6 MG/DL (8.5-10.1); Osmolality,Calculated 283.8 MOS/KG (273-304)
[2021-10-17 07:04] LABS: Platelet Count 36 T/CUMM (130-400)
[2021-10-17 07:07] LABS: Band Neutrophils 9 % (0-10); Hypochromasia Slight; Lymphocytes 6 % (20-55); Segmented Neutrophils 81 % (50-85); Total Cells Counted 100
[2021-10-17 07:08] LABS: Acanthocytes Few; Elliptocytes 1+; Microcytosis 1+
[2021-10-17 07:09] LABS: Platelet Estimate Decreased
[2021-10-17] MEDS ORDERED: MAGNESIUM SULF RIDER 2 GM/50 ML PREMIX IV PRN (07:33)
[2021-10-17] MEDS ORDERED: MAGNESIUM SULF RIDER 4 GM/100 ML PREMIX IV PRN (07:33)
[2021-10-17] MEDS: POTASSIUM CHLORIDE 20 MEQ TABLET PO PRN (08:21)
[2021-10-17] MEDS: GABAPENTIN 300 MG CAPSULE PO SCH ×2 (08:21→20:59)
[2021-10-17] MEDS: OXYBUTYNIN XL 10 MG TABLET PO SCH (08:22)
[2021-10-17] MEDS: THIAMINE 100 MG TABLET PO SCH ×2 (08:22→20:59)
[2021-10-17] MEDS: INSULIN NPH 100 UNIT/ML SUBCUT SCH ×2 (08:22→16:36)
[2021-10-17] MEDS ORDERED: PANTOPRAZOLE 40 MG TABLET PO SCH (09:00)
[2021-10-17] MEDS ORDERED: LACTULOSE 20 GM/30 ML UDCUP PO SCH (09:00)
[2021-10-17] MEDS: BICTEGRAV EMTRICIT TENOFOV ALA PO SCH (10:02)
[2021-10-17] MEDS ORDERED: DEXTROSE 50% 25 GM/50 ML SYRINGE IV PRN (10:06)
[2021-10-17] MEDS: FONDAPARINUX 2.5 MG/0.5 ML SYRINGE SUBCUT SCH (10:48)
[2021-10-17] MEDS: CEFEPIME 1,000 MG in SODIUM CHLORIDE 0.9% 100 ML IV SCH ×2 (10:48→22:15)
[2021-10-17] MEDS: INSULIN LISPRO 100 UNIT/ML SUBCUT SCH ×3 (10:49→20:41)
[2021-10-17 11:30] LABS: INR 1.4; PT Patient Result 15.6 SECS (10.5-12.0); Partial Thromboplastin Time 39.6 SECS (23.8-32.1)
[2021-10-17] MEDS: DESITIN 4OZ/NYSTATIN 15 GRAM MIXTURE PASTE TOP SCH ×2 (14:52→20:59)
[2021-10-17] MEDS: COLLAGENASE OINT 30 GM TUBE TOP SCH (14:52)
[2021-10-17] MEDS: LACTULOSE 20 GM/30 ML UDCUP PO SCH ×2 (20:58→21:04)
[2021-10-18] MEDS: SODIUM CHLORIDE 0.9% 1,000 ML IV SCH ×2 (03:36→06:05)
[2021-10-18] MEDS: NOREPINEPHRINE 8 MG in SODIUM CHLORIDE 0.9% 242 ML IV PRN ×2 (06:07→22:55)
[2021-10-18 06:09] LABS: Basophils % 0.2 % (0.0-0.8); Eosinophils # 0.1 10*3/uL (0.0-0.87); Eosinophils % 0.6 % (0.00-10.9); Hematocrit 26.8 VOL% (42.0-52.0); Hemoglobin 9.2 GM/DL (14.0-18.0); Immature Granulocytes % 0.4 %; Immature Granulocytes Absolute 0.05 #; Lymphocytes # 0.8 10*3/uL (1.4-4.0); Lymphocytes % 6.6 % (21.2-54.2); Mean Corpuscular HGB Conc 34.3 GM/DL (32-36); Mean Corpuscular Volume 91.2 FL (87-102); Mean Platelet Volume 11.8 FL (9.6-12.0); Monocytes % 5.7 % (1.7-12.7); Neutrophils % 86.5 % (38.7-73.9); Red Blood Count 2.94 MC/CUMM (3.8-5.5); Red Cell Distribution Width 18.1 % (9.3-17.3); White Blood Count 12.6 T/CUMM (4-12)
[2021-10-18 06:19] LABS: Platelet Count 34 T/CUMM (130-400)
[2021-10-18 06:31] LABS: Albumin 2.1 G/DL (3.4-5.0); Bilirubin,Total 2.2 MG/DL (0.20-1.00); Calcium 7.7 MG/DL (8.5-10.1); Osmolality,Calculated 282.7 MOS/KG (273-304); Potassium 3.3 MMOL/L (3.5-5.1); Total Protein 6.5 G/DL (6.4-8.2)
[2021-10-18 06:38] LABS: Hypochromasia 1+; Lymphocytes 3 % (20-55); Microcytosis 1+; Ovalocytes Slight; Platelet Estimate Decreased; Segmented Neutrophils 95 % (50-85); Total Cells Counted 100
[2021-10-18] MEDS: POTASSIUM CHLORIDE 20 MEQ TABLET PO PRN ×3 (06:54→21:48)
[2021-10-18] MEDS ORDERED: SODIUM BICARBONATE 50 MEQ/50 ML VIAL IV ONE (07:38)
[2021-10-18] MEDS: OXYBUTYNIN XL 10 MG TABLET PO SCH (09:04)
[2021-10-18] MEDS: LACTULOSE 20 GM/30 ML UDCUP PO SCH ×2 (09:04→22:08)
[2021-10-18] MEDS: INSULIN NPH 100 UNIT/ML SUBCUT SCH ×2 (09:04→17:29)
[2021-10-18] MEDS: INSULIN LISPRO 100 UNIT/ML SUBCUT SCH ×4 (09:04→22:07)
[2021-10-18] MEDS: BICTEGRAV EMTRICIT TENOFOV ALA PO SCH (09:04)
[2021-10-18] MEDS: DESITIN 4OZ/NYSTATIN 15 GRAM MIXTURE PASTE TOP SCH ×2 (09:05→22:08)
[2021-10-18] MEDS: GABAPENTIN 300 MG CAPSULE PO SCH ×2 (09:05→21:48)
[2021-10-18] MEDS: THIAMINE 100 MG TABLET PO SCH ×2 (09:05→21:48)
[2021-10-18] MEDS: COLLAGENASE OINT 30 GM TUBE TOP SCH (09:05)
[2021-10-18] MEDS: FAMOTIDINE 20 MG TABLET PO SCH (09:05)
[2021-10-18] MEDS: LACTATED RINGERS 1,000 ML IV SCH (10:41)
[2021-10-18] MEDS: FONDAPARINUX 2.5 MG/0.5 ML SYRINGE SUBCUT SCH (10:42)
[2021-10-18] MEDS: CEFEPIME 1,000 MG in SODIUM CHLORIDE 0.9% 100 ML IV SCH ×2 (10:42→22:29)
[2021-10-18] MEDS: POLYETHYLENE GLYCOL POWDER 17 GM PACK PO SCH (10:42)
[2021-10-19] MEDS: POTASSIUM CHLORIDE 20 MEQ TABLET PO PRN ×2 (00:36→02:27)
[2021-10-19] MEDS ORDERED: ACETAMINOPHEN 325 MG TABLET PO PRN (03:20)
[2021-10-19 05:22] LABS: Basophils % 0.2 % (0.0-0.8); Eosinophils # 0.1 10*3/uL (0.0-0.87); Eosinophils % 1.5 % (0.00-10.9); Hematocrit 24.9 VOL% (42.0-52.0); Hemoglobin 8.6 GM/DL (14.0-18.0); Immature Granulocytes % 0.7 %; Immature Granulocytes Absolute 0.07 #; Lymphocytes # 0.8 10*3/uL (1.4-4.0); Lymphocytes % 7.8 % (21.2-54.2); Mean Corpuscular HGB Conc 34.5 GM/DL (32-36); Mean Corpuscular Volume 89.2 FL (87-102); Mean Platelet Volume 9.5 FL (9.6-12.0); Monocytes % 8.6 % (1.7-12.7); Neutrophils % 81.2 % (38.7-73.9); Red Blood Count 2.79 MC/CUMM (3.8-5.5); Red Cell Distribution Width 17.5 % (9.3-17.3); White Blood Count 9.6 T/CUMM (4-12)
[2021-10-19 05:39] LABS: Albumin 2.1 G/DL (3.4-5.0); Bilirubin,Total 2.2 MG/DL (0.20-1.00); Calcium 7.7 MG/DL (8.5-10.1); Osmolality,Calculated 276.7 MOS/KG (273-304); Potassium 3.6 MMOL/L (3.5-5.1); Total Protein 6.5 G/DL (6.4-8.2)
[2021-10-19 05:45] LABS: Platelet Count 29 T/CUMM (130-400)
[2021-10-19 05:55] LABS: Eosinophils 1 % (0-10); Lymphocytes 4 % (20-55); Ovalocytes 1+; Segmented Neutrophils 86 % (50-85); Total Cells Counted 100
[2021-10-19 05:56] LABS: Acanthocytes Few; Hypochromasia Slight; Microcytosis 1+; Platelet Estimate Decreased
[2021-10-19] MEDS: LACTATED RINGERS 1,000 ML IV SCH (06:25)
[2021-10-19] MEDS: INSULIN LISPRO 100 UNIT/ML SUBCUT SCH ×4 (08:38→20:44)
[2021-10-19] MEDS: INSULIN NPH 100 UNIT/ML SUBCUT SCH ×2 (08:39→16:46)
[2021-10-19] MEDS ORDERED: HYDROCORTISONE 100 MG VIAL IV SCH (09:00)
[2021-10-19] MEDS ORDERED: LACTATED RINGERS 1,000 ML IV ONE (09:01)
[2021-10-19] MEDS: COLLAGENASE OINT 30 GM TUBE TOP SCH (09:12)
[2021-10-19] MEDS: LACTULOSE 20 GM/30 ML UDCUP PO SCH ×2 (09:12→20:45)
[2021-10-19] MEDS: GABAPENTIN 300 MG CAPSULE PO SCH ×2 (09:12→20:43)
[2021-10-19] MEDS: FAMOTIDINE 20 MG TABLET PO SCH (09:12)
[2021-10-19] MEDS: OXYBUTYNIN XL 10 MG TABLET PO SCH (09:12)
[2021-10-19] MEDS: POLYETHYLENE GLYCOL POWDER 17 GM PACK PO SCH (09:12)
[2021-10-19] MEDS: DESITIN 4OZ/NYSTATIN 15 GRAM MIXTURE PASTE TOP SCH ×2 (09:13→20:45)
[2021-10-19] MEDS: BICTEGRAV EMTRICIT TENOFOV ALA PO SCH (09:14)
[2021-10-19] MEDS: THIAMINE 100 MG TABLET PO SCH ×2 (09:14→20:44)
[2021-10-19] MEDS: CEFEPIME 1,000 MG in SODIUM CHLORIDE 0.9% 100 ML IV SCH ×2 (11:41→22:00)
[2021-10-19] MEDS: FONDAPARINUX 2.5 MG/0.5 ML SYRINGE SUBCUT SCH (11:41)
[2021-10-20 06:11] LABS: Calcium 7.6 MG/DL (8.5-10.1); Osmolality,Calculated 280.5 MOS/KG (273-304); Potassium 3.6 MMOL/L (3.5-5.1)
[2021-10-20 06:16] LABS: Basophils % 0.4 % (0.0-0.8); Eosinophils # 0.2 10*3/uL (0.0-0.87); Eosinophils % 2.2 % (0.00-10.9); Hematocrit 24.4 VOL% (42.0-52.0); Hemoglobin 8.6 GM/DL (14.0-18.0); Immature Granulocytes % 0.6 %; Immature Granulocytes Absolute 0.04 #; Lymphocytes # 0.9 10*3/uL (1.4-4.0); Lymphocytes % 14.1 % (21.2-54.2); Mean Corpuscular HGB Conc 35.2 GM/DL (32-36); Mean Corpuscular Volume 88.7 FL (87-102); Mean Platelet Volume 12.6 FL (9.6-12.0); Monocytes % 11.8 % (1.7-12.7); Neutrophils % 70.9 % (38.7-73.9); Red Blood Count 2.75 MC/CUMM (3.8-5.5); Red Cell Distribution Width 17.7 % (9.3-17.3); White Blood Count 6.7 T/CUMM (4-12)
[2021-10-20 06:19] LABS: Platelet Count 31 T/CUMM (130-400)
[2021-10-20 06:24] LABS: Risk Ratio 4.77; VLDL Cholesterol 19.2 MG/DL
[2021-10-20 06:28] LABS: Eosinophils 2 % (0-10); Lymphocytes 12 % (20-55); Platelet Estimate Decreased; Segmented Neutrophils 78 % (50-85); Total Cells Counted 100
[2021-10-20 06:29] LABS: Elliptocytes Few; Hypochromasia 1+; Microcytosis 1+
[2021-10-20] MEDS ORDERED: SODIUM CHLORIDE 0.9% 1,000 ML IV ONE (08:31)
[2021-10-20] MEDS: FAMOTIDINE 20 MG TABLET PO SCH (08:34)
[2021-10-20] MEDS: INSULIN LISPRO 100 UNIT/ML SUBCUT SCH ×4 (08:34→21:38)
[2021-10-20] MEDS: THIAMINE 100 MG TABLET PO SCH ×2 (08:34→21:37)
[2021-10-20] MEDS: LACTULOSE 20 GM/30 ML UDCUP PO SCH ×4 (08:34→21:37)
[2021-10-20] MEDS: POLYETHYLENE GLYCOL POWDER 17 GM PACK PO SCH (08:34)
[2021-10-20] MEDS: INSULIN NPH 100 UNIT/ML SUBCUT SCH ×2 (08:34→15:42)
[2021-10-20] MEDS: GABAPENTIN 300 MG CAPSULE PO SCH ×2 (08:35→21:37)
[2021-10-20] MEDS: OXYBUTYNIN XL 10 MG TABLET PO SCH (08:35)
[2021-10-20] MEDS: BICTEGRAV EMTRICIT TENOFOV ALA PO SCH (08:36)
[2021-10-20] MEDS: DESITIN 4OZ/NYSTATIN 15 GRAM MIXTURE PASTE TOP SCH ×2 (08:37→21:39)
[2021-10-20] MEDS: COLLAGENASE OINT 30 GM TUBE TOP SCH (08:37)
[2021-10-20] MEDS: HYDROCORTISONE 100 MG VIAL IV SCH ×2 (08:39→17:01)
[2021-10-20 09:33] LABS: Bacteria,Urine Many /HPF (Few); Bilirubin,Urine Negative (Negative); Blood, Urine Moderate mg/dL (Negative); Glucose,Urine (UA) Negative (Negative); Ketones,Urine Negative (Negative); Nitrite,Urine Negative (Negative); Protein,Urine 30 MG/DL; RBC,Urine 25 /HPF (0-4); Urine Appearance CLOUDY (Clear); Urine Color Yellow (Yellow); Urine Specific Gravity 1.011 (1.001-1.035); Urine Urobilinogen < 2.0 EU/DL (0.2-1.0)
[2021-10-20] MEDS: FONDAPARINUX 2.5 MG/0.5 ML SYRINGE SUBCUT SCH (11:19)
[2021-10-20] MEDS: CEFEPIME 1,000 MG in SODIUM CHLORIDE 0.9% 100 ML IV SCH ×2 (11:19→23:28)
[2021-10-20] MEDS: MIDODRINE 5 MG TABLET PO SCH ×2 (15:22→21:37)
[2021-10-21] MEDS: HYDROCORTISONE 100 MG VIAL IV SCH ×2 (00:57→08:13)
[2021-10-21 06:39] LABS: Basophils % 0.2 % (0.0-0.8); Hematocrit 25.4 VOL% (42.0-52.0); Hemoglobin 8.7 GM/DL (14.0-18.0); Immature Granulocytes % 0.8 %; Immature Granulocytes Absolute 0.05 #; Lymphocytes # 0.6 10*3/uL (1.4-4.0); Lymphocytes % 9.2 % (21.2-54.2); Mean Corpuscular HGB Conc 34.3 GM/DL (32-36); Mean Corpuscular Volume 88.8 FL (87-102); Mean Platelet Volume 13.4 FL (9.6-12.0); Monocytes % 5.2 % (1.7-12.7); Neutrophils % 84.6 % (38.7-73.9); Red Blood Count 2.86 MC/CUMM (3.8-5.5); Red Cell Distribution Width 17.3 % (9.3-17.3); White Blood Count 6.5 T/CUMM (4-12)
[2021-10-21 06:42] LABS: Platelet Count 32 T/CUMM (130-400)
[2021-10-21 07:00] LABS: Band Neutrophils 2 % (0-10); Lymphocytes 4 % (20-55); Platelet Estimate Decreased; Segmented Neutrophils 93 % (50-85); Total Cells Counted 100
[2021-10-21 07:01] LABS: Hypochromasia Slight; Ovalocytes Few
[2021-10-21 07:03] LABS: Albumin 1.9 G/DL (3.4-5.0); Bilirubin,Total 1.2 MG/DL (0.20-1.00); Calcium 7.4 MG/DL (8.5-10.1); Osmolality,Calculated 284.5 MOS/KG (273-304); Potassium 3.7 MMOL/L (3.5-5.1); Total Protein 6.1 G/DL (6.4-8.2)
[2021-10-21] MEDS: INSULIN LISPRO 100 UNIT/ML SUBCUT SCH ×2 (08:12→11:15)
[2021-10-21] MEDS: INSULIN NPH 100 UNIT/ML SUBCUT SCH (08:12)
[2021-10-21] MEDS: OXYBUTYNIN XL 10 MG TABLET PO SCH (08:13)
[2021-10-21] MEDS: LACTULOSE 20 GM/30 ML UDCUP PO SCH (08:13)
[2021-10-21] MEDS: COLLAGENASE OINT 30 GM TUBE TOP SCH (08:13)
[2021-10-21] MEDS: MIDODRINE 5 MG TABLET PO SCH (08:13)
[2021-10-21] MEDS: THIAMINE 100 MG TABLET PO SCH (08:13)
[2021-10-21] MEDS: FAMOTIDINE 20 MG TABLET PO SCH (08:13)
[2021-10-21] MEDS: GABAPENTIN 300 MG CAPSULE PO SCH (08:13)
[2021-10-21] MEDS: POLYETHYLENE GLYCOL POWDER 17 GM PACK PO SCH (08:14)
[2021-10-21] MEDS: BICTEGRAV EMTRICIT TENOFOV ALA PO SCH (08:14)
[2021-10-21] MEDS: DESITIN 4OZ/NYSTATIN 15 GRAM MIXTURE PASTE TOP SCH (08:14)
[2021-10-21] MEDS ORDERED: SODIUM BICARBONATE 50 MEQ/50 ML VIAL IV ONE (09:18)
[2021-10-21] MEDS: CEFEPIME 1,000 MG in SODIUM CHLORIDE 0.9% 100 ML IV SCH (09:35)
[2021-10-21] MEDS: FONDAPARINUX 2.5 MG/0.5 ML SYRINGE SUBCUT SCH (09:36)
== END 2021-10-21 11:20 | DRG 466 ==
LOC: EDBD → EDUNIT# → N.ED 08:18 → N.EDINP 10:02 → SUATTDRO 10:02 → N.CC 10:47
PROVIDERS: ADMIT Internal Medicine; ATTEND Family Medicine

== ENCOUNTER 2021-11-04 12:45 | Inpatient (IN) ==
[2021-11-04] MEDS ORDERED: SODIUM CHLORIDE 0.9% 1,000 ML IV STA ×2 (13:14→15:24)
[2021-11-04 14:49] LABS: Basophils % 0.4 % (0.0-0.8); Eosinophils # 0.1 10*3/uL (0.0-0.87); Eosinophils % 1.7 % (0.00-10.9); Hematocrit 19.9 VOL% (42.0-52.0); Hemoglobin 6.6 GM/DL (14.0-18.0); Immature Granulocytes % 0.8 %; Immature Granulocytes Absolute 0.06 #; Mean Corpuscular HGB Conc 33.2 GM/DL (32-36); Mean Platelet Volume 13.1 FL (9.6-12.0); Monocytes % 3.9 % (1.7-12.7); Neutrophils % 80.2 % (38.7-73.9); Red Blood Count 2.14 MC/CUMM (3.8-5.5); Red Cell Distribution Width 16.7 % (9.3-17.3); White Blood Count 7.9 T/CUMM (4-12)
[2021-11-04 15:00] LABS: Platelet Count 26 T/CUMM (130-400)
[2021-11-04 15:17] LABS: INR 1.5; PT Patient Result 15.9 SECS (10.5-12.0)
[2021-11-04 15:22] LABS: Bilirubin,Total 1.3 MG/DL (0.20-1.00); Calcium 7.5 MG/DL (8.5-10.1); Osmolality,Calculated 301.7 MOS/KG (273-304); Potassium 5.8 MMOL/L (3.5-5.1); Total Protein 7.5 G/DL (6.4-8.2)
[2021-11-04] MEDS ORDERED: SODIUM CHLORIDE 0.9% 500 ML IV STA ×2 (15:24→16:49)
[2021-11-04 15:41] LABS: Bacteria,Urine Few /HPF (Few); Bilirubin,Urine Negative (Negative); Blood, Urine Moderate mg/dL (Negative); Glucose,Urine (UA) 50 mg/dL (Negative); Ketones,Urine 5 mg/dL (Negative); Nitrite,Urine Negative (Negative); Protein,Urine 100 MG/DL; RBC,Urine 2185 /HPF (0-4); Urine Appearance CLEAR (Clear); Urine Color Red (Yellow); Urine Specific Gravity 1.013 (1.001-1.035); Urine Urobilinogen < 2.0 EU/DL (<2.0)
[2021-11-04] MEDS ORDERED: CEFEPIME 1,000 MG in SODIUM CHLORIDE 0.9% 100 ML IV STA (15:53)
[2021-11-04] MEDS ORDERED: GLUCAGON 1 MG VIAL IM PRN (16:42)
[2021-11-04] MEDS ORDERED: DEXTROSE 50% 25 GM/50 ML SYRINGE IV PRN (16:42)
[2021-11-04] MEDS ORDERED: SODIUM CHLORIDE 0.9% 1,000 ML IV PRN (16:48)
[2021-11-04] MEDS ORDERED: SODIUM POLYSTYRENE SULFATE 15 GM/60 ML BOTTLE PO STA (17:02)
[2021-11-04] MEDS ORDERED: ALUMINUM/MAGNES/SIMETH MAX STR 30 ML UDCUP PO PRN (17:08)
[2021-11-04] MEDS ORDERED: PROMETHAZINE 25 MG/1 ML VIAL IM PRN (17:08)
[2021-11-04 18:04] LABS: Band Neutrophils 1 % (0-10); Eosinophils 2 % (0-10); Lymphocytes 14 % (20-55); Segmented Neutrophils 82 % (50-85); Total Cells Counted 100
[2021-11-04 18:05] LABS: Anisocytosis 1+; Atypical Lymphocytes Few; Microcytosis 1+; Ovalocytes 1+; Platelet Estimate Decreased
[2021-11-04] MEDS: SODIUM CHLORIDE 0.9% 1,000 ML IV SCH (20:30)
[2021-11-04 20:47] LABS: Hematocrit 19.8 VOL% (42.0-52.0); Hemoglobin 6.5 GM/DL (14.0-18.0)
[2021-11-04] MEDS: MIDODRINE 5 MG TABLET PO SCH (22:31)
[2021-11-05 06:50] LABS: Basophils % 0.4 % (0.0-0.8); Eosinophils # 0.2 10*3/uL (0.0-0.87); Hematocrit 27.5 VOL% (42.0-52.0); Hemoglobin 8.9 GM/DL (14.0-18.0); Immature Granulocytes % 0.9 %; Immature Granulocytes Absolute 0.05 #; Lymphocytes # 0.6 10*3/uL (1.4-4.0); Mean Corpuscular HGB Conc 32.4 GM/DL (32-36); Mean Corpuscular Volume 93.2 FL (87-102); Monocytes % 3.5 % (1.7-12.7); Neutrophils % 81.2 % (38.7-73.9); Red Blood Count 2.95 MC/CUMM (3.8-5.5); Red Cell Distribution Width 15.9 % (9.3-17.3); White Blood Count 5.7 T/CUMM (4-12)
[2021-11-05 06:54] LABS: Platelet Count 21 T/CUMM (130-400)
[2021-11-05 07:19] LABS: Calcium 7.7 MG/DL (8.5-10.1); Osmolality,Calculated 308.7 MOS/KG (273-304); Potassium 4.5 MMOL/L (3.5-5.1); Risk Ratio 3.88; Thyroid Stimulating Hormone 0.881 uIU/ml (0.358-3.74); Total Protein 7.2 G/DL (6.4-8.2); VLDL Cholesterol 15.2 MG/DL
[2021-11-05 07:33] LABS: Anisocytosis 1+; Band Neutrophils 16 % (0-10); Burr Cells 1+; Eosinophils 2 % (0-10); Lymphocytes 11 % (20-55); Platelet Estimate Decreased; Segmented Neutrophils 67 % (50-85); Smudge Cells Few; Total Cells Counted 100
[2021-11-05 07:34] LABS: Ovalocytes 1+; Tear Drop Cells Few
[2021-11-05] MEDS: OXYBUTYNIN XL 10 MG TABLET PO SCH (09:48)
[2021-11-05] MEDS: MIDODRINE 5 MG TABLET PO SCH ×3 (09:49→21:55)
[2021-11-05] MEDS: PANTOPRAZOLE 40 MG TABLET PO SCH (09:49)
[2021-11-05] MEDS ORDERED: LIDOCAINE 2% TOP JELLY 20 ML VIAL INTRAURETH ONE (11:38)
[2021-11-05 12:14] LABS: Hematocrit 26.4 VOL% (42.0-52.0); Hemoglobin 8.9 GM/DL (14.0-18.0)
[2021-11-05] MEDS: SODIUM BICARB INJ 50 MEQ in SODIUM CHLORIDE 0.45% 1,000 ML IV SCH ×2 (12:33→21:21)
[2021-11-05] MEDS: MENTHOL/ZINC OXIDE OINT 71 GM JAR TOP SCH ×2 (16:06→21:55)
[2021-11-05] MEDS: CEFEPIME 1,000 MG in SODIUM CHLORIDE 0.9% 100 ML IV SCH (16:07)
[2021-11-05 17:38] LABS: Hematocrit 25.3 VOL% (42.0-52.0); Hemoglobin 8.5 GM/DL (14.0-18.0)
[2021-11-05] MEDS: SODIUM CHLORIDE 0.9% 1,000 ML IV SCH (22:28)
[2021-11-05 23:25] LABS: Hematocrit 23.5 VOL% (42.0-52.0); Hemoglobin 7.8 GM/DL (14.0-18.0)
[2021-11-06 02:33] LABS: Basophils % 0.4 % (0.0-0.8); Eosinophils # 0.2 10*3/uL (0.0-0.87); Eosinophils % 3.2 % (0.00-10.9); Hematocrit 24.2 VOL% (42.0-52.0); Immature Granulocytes % 0.9 %; Immature Granulocytes Absolute 0.04 #; Lymphocytes # 0.8 10*3/uL (1.4-4.0); Lymphocytes % 16.2 % (21.2-54.2); Mean Corpuscular HGB Conc 33.1 GM/DL (32-36); Mean Corpuscular Volume 93.1 FL (87-102); Monocytes % 5.6 % (1.7-12.7); Neutrophils % 73.7 % (38.7-73.9); White Blood Count 4.6 T/CUMM (4-12)
[2021-11-06 02:48] LABS: Platelet Count 15 T/CUMM (130-400)
[2021-11-06 02:54] LABS: Albumin 1.9 G/DL (3.4-5.0); Bilirubin,Total 1.1 MG/DL (0.20-1.00); Calcium 7.4 MG/DL (8.5-10.1); Potassium 4.1 MMOL/L (3.5-5.1); Total Protein 7.1 G/DL (6.4-8.2)
[2021-11-06] MEDS ORDERED: SODIUM CHLORIDE 0.9% 1,000 ML IV PRN ×2 (03:01→08:17)
[2021-11-06 03:03] LABS: Band Neutrophils 1 % (0-10); Eosinophils 2 % (0-10); Lymphocytes 23 % (20-55); Segmented Neutrophils 67 % (50-85); Total Cells Counted 100
[2021-11-06 03:04] LABS: Anisocytosis 1+; Elliptocytes Few; Hypochromia 1+; Platelet Estimate Decreased
[2021-11-06] MEDS: OXYBUTYNIN XL 10 MG TABLET PO SCH (09:42)
[2021-11-06] MEDS: PANTOPRAZOLE 40 MG TABLET PO SCH (09:42)
[2021-11-06] MEDS: MIDODRINE 5 MG TABLET PO SCH ×3 (09:42→20:26)
[2021-11-06] MEDS: MENTHOL/ZINC OXIDE OINT 71 GM JAR TOP SCH ×3 (09:43→20:37)
[2021-11-06] MEDS: SODIUM BICARB INJ 50 MEQ in SODIUM CHLORIDE 0.45% 1,000 ML IV SCH (09:50)
[2021-11-06 12:04] LABS: Basophils % 0.4 % (0.0-0.8); Eosinophils # 0.2 10*3/uL (0.0-0.87); Eosinophils % 3.1 % (0.00-10.9); Hematocrit 23.7 VOL% (42.0-52.0); Hemoglobin 7.8 GM/DL (14.0-18.0); Immature Granulocytes % 1.1 %; Immature Granulocytes Absolute 0.06 #; Lymphocytes # 0.6 10*3/uL (1.4-4.0); Lymphocytes % 11.5 % (21.2-54.2); Mean Corpuscular HGB Conc 32.9 GM/DL (32-36); Mean Corpuscular Volume 92.9 FL (87-102); Monocytes % 6.5 % (1.7-12.7); Neutrophils % 77.4 % (38.7-73.9); Red Blood Count 2.55 MC/CUMM (3.8-5.5); White Blood Count 5.2 T/CUMM (4-12)
[2021-11-06 12:06] LABS: Platelet Count 15 T/CUMM (130-400)
[2021-11-06 12:40] LABS: Anisocytosis 1+; Band Neutrophils 8 % (0-10); Eosinophils 5 % (0-10); Lymphocytes 9 % (20-55); Ovalocytes 1+; Platelet Estimate Decreased; Segmented Neutrophils 73 % (50-85); Tear Drop Cells Few; Total Cells Counted 100
[2021-11-06 12:41] LABS: Macrocytosis 1+
[2021-11-06] MEDS: INSULIN REGULAR 100 UNIT/ML SUBCUT SCH ×2 (16:16→20:40)
[2021-11-06] MEDS: SODIUM CHLORIDE 23.4% CONC INJ 38.5 MEQ, SODIUM BICARB INJ 50 MEQ in STERILE WATER INJ ... IV SCH (19:03)
[2021-11-06] MEDS: CEFEPIME 1,000 MG in SODIUM CHLORIDE 0.9% 100 ML IV SCH (20:26)
[2021-11-06] MEDS: NYSTATIN POWDER 15 GM BOTTLE TOP SCH ×2 (20:33→20:37)
[2021-11-07] MEDS: SODIUM CHLORIDE 23.4% CONC INJ 38.5 MEQ, SODIUM BICARB INJ 50 MEQ in STERILE WATER INJ ... IV SCH ×2 (04:30→17:35)
[2021-11-07 06:29] LABS: Basophils % 0.6 % (0.0-0.8); Eosinophils # 0.2 10*3/uL (0.0-0.87); Eosinophils % 3.6 % (0.00-10.9); Hematocrit 24.4 VOL% (42.0-52.0); Hemoglobin 7.9 GM/DL (14.0-18.0); Immature Granulocytes % 1.2 %; Immature Granulocytes Absolute 0.06 #; Lymphocytes # 0.7 10*3/uL (1.4-4.0); Lymphocytes % 14.2 % (21.2-54.2); Mean Corpuscular HGB Conc 32.4 GM/DL (32-36); Mean Corpuscular Volume 94.2 FL (87-102); Monocytes % 9.4 % (1.7-12.7); Red Blood Count 2.59 MC/CUMM (3.8-5.5); Red Cell Distribution Width 15.9 % (9.3-17.3)
[2021-11-07 06:37] LABS: Platelet Count 22 T/CUMM (130-400)
[2021-11-07 06:45] LABS: Albumin 2.2 G/DL (3.4-5.0); Bilirubin,Total 1.3 MG/DL (0.20-1.00); Calcium 7.8 MG/DL (8.5-10.1); Osmolality,Calculated 301.4 MOS/KG (273-304); Potassium 3.8 MMOL/L (3.5-5.1); Total Protein 7.2 G/DL (6.4-8.2)
[2021-11-07 06:53] LABS: Band Neutrophils 2 % (0-10); Eosinophils 2 % (0-10); Hypochromia Slight; Lymphocytes 13 % (20-55); Microcytosis 1+; Ovalocytes 1+; Platelet Estimate Decreased; Segmented Neutrophils 74 % (50-85); Total Cells Counted 100
[2021-11-07] MEDS: INSULIN REGULAR 100 UNIT/ML SUBCUT SCH ×4 (09:05→22:23)
[2021-11-07] MEDS: OXYBUTYNIN XL 10 MG TABLET PO SCH (09:06)
[2021-11-07] MEDS: PANTOPRAZOLE 40 MG TABLET PO SCH (09:06)
[2021-11-07] MEDS: MIDODRINE 5 MG TABLET PO SCH ×3 (09:06→22:23)
[2021-11-07] MEDS: NYSTATIN POWDER 15 GM BOTTLE TOP SCH ×3 (09:09→22:27)
[2021-11-07] MEDS: MENTHOL/ZINC OXIDE OINT 71 GM JAR TOP SCH ×3 (09:10→22:27)
[2021-11-07] MEDS: cefTRIAXone 1,000 MG in SODIUM CHLORIDE 0.9% 100 ML IV SCH (13:24)
[2021-11-07] MEDS: OXYBUTYNIN XL 15 MG TABLET PO SCH (22:23)
[2021-11-08] MEDS: SODIUM CHLORIDE 23.4% CONC INJ 38.5 MEQ, SODIUM BICARB INJ 50 MEQ in STERILE WATER INJ ... IV SCH ×2 (03:14→17:06)
[2021-11-08 06:40] LABS: Basophils % 0.4 % (0.0-0.8); Eosinophils # 0.2 10*3/uL (0.0-0.87); Eosinophils % 3.7 % (0.00-10.9); Hematocrit 24.5 VOL% (42.0-52.0); Hemoglobin 8.1 GM/DL (14.0-18.0); Immature Granulocytes Absolute 0.05 #; Lymphocytes # 0.9 10*3/uL (1.4-4.0); Lymphocytes % 17.3 % (21.2-54.2); Mean Corpuscular HGB Conc 33.1 GM/DL (32-36); Mean Corpuscular Volume 92.1 FL (87-102); Neutrophils % 64.6 % (38.7-73.9); Red Blood Count 2.66 MC/CUMM (3.8-5.5); Red Cell Distribution Width 15.7 % (9.3-17.3); White Blood Count 5.1 T/CUMM (4-12)
[2021-11-08 06:57] LABS: Platelet Count 23 T/CUMM (130-400)
[2021-11-08 07:11] LABS: % Iron Saturation 25.5 % (18-50); Calcium 7.7 MG/DL (8.5-10.1); Ferritin 691.2 ng/mL (26-388); Osmolality,Calculated 299.3 MOS/KG (273-304); Potassium 3.8 MMOL/L (3.5-5.1)
[2021-11-08 07:17] LABS: Band Neutrophils 1 % (0-10); Eosinophils 2 % (0-10); Hypochromia 1+; Lymphocytes 11 % (20-55); Microcytosis 1+; Ovalocytes Slight; Platelet Estimate Decreased; Segmented Neutrophils 76 % (50-85); Total Cells Counted 100
[2021-11-08] MEDS ORDERED: MAGNESIUM SULF RIDER 2 GM/50 ML PREMIX IV ONE (07:21)
[2021-11-08] MEDS: INSULIN REGULAR 100 UNIT/ML SUBCUT SCH ×4 (07:30→20:26)
[2021-11-08] MEDS: PANTOPRAZOLE 40 MG TABLET PO SCH (08:52)
[2021-11-08] MEDS: MIDODRINE 5 MG TABLET PO SCH ×3 (08:52→20:27)
[2021-11-08] MEDS: FERROUS SULFATE 325 MG TABLET PO SCH ×2 (08:53→20:27)
[2021-11-08] MEDS: MENTHOL/ZINC OXIDE OINT 71 GM JAR TOP SCH ×3 (08:56→20:32)
[2021-11-08] MEDS: NYSTATIN POWDER 15 GM BOTTLE TOP SCH ×3 (08:56→20:32)
[2021-11-08] MEDS: OXYBUTYNIN XL 10 MG TABLET PO SCH (08:58)
[2021-11-08] MEDS: cefTRIAXone 1,000 MG in SODIUM CHLORIDE 0.9% 100 ML IV SCH (13:47)
[2021-11-08] MEDS: OXYBUTYNIN XL 15 MG TABLET PO SCH (20:29)
[2021-11-09] MEDS: SODIUM CHLORIDE 23.4% CONC INJ 38.5 MEQ, SODIUM BICARB INJ 50 MEQ in STERILE WATER INJ ... IV SCH ×3 (02:54→16:02)
[2021-11-09 06:03] LABS: Basophils % 0.3 % (0.0-0.8); Eosinophils # 0.2 10*3/uL (0.0-0.87); Eosinophils % 2.1 % (0.00-10.9); Hematocrit 23.1 VOL% (42.0-52.0); Hemoglobin 7.7 GM/DL (14.0-18.0); Immature Granulocytes Absolute 0.08 #; Lymphocytes % 12.3 % (21.2-54.2); Mean Corpuscular HGB Conc 33.3 GM/DL (32-36); Mean Corpuscular Volume 91.3 FL (87-102); Mean Platelet Volume 13.5 FL (9.6-12.0); Monocytes % 10.1 % (1.7-12.7); Neutrophils % 74.2 % (38.7-73.9); Red Blood Count 2.53 MC/CUMM (3.8-5.5); Red Cell Distribution Width 15.3 % (9.3-17.3); White Blood Count 7.8 T/CUMM (4-12)
[2021-11-09 06:06] LABS: Platelet Count 36 T/CUMM (130-400)
[2021-11-09 06:31] LABS: Calcium 7.6 MG/DL (8.5-10.1); Potassium 3.9 MMOL/L (3.5-5.1)
[2021-11-09 06:34] LABS: Band Neutrophils 2 % (0-10); Eosinophils 1 % (0-10); Hypochromia 1+; Lymphocytes 8 % (20-55); Platelet Estimate Decreased; Segmented Neutrophils 84 % (50-85); Total Cells Counted 100
[2021-11-09] MEDS: INSULIN REGULAR 100 UNIT/ML SUBCUT SCH ×4 (08:02→21:56)
[2021-11-09] MEDS: OXYBUTYNIN XL 10 MG TABLET PO SCH (09:25)
[2021-11-09] MEDS: NYSTATIN POWDER 15 GM BOTTLE TOP SCH ×3 (09:26→21:47)
[2021-11-09] MEDS: FERROUS SULFATE 325 MG TABLET PO SCH ×2 (09:26→21:47)
[2021-11-09] MEDS: MIDODRINE 5 MG TABLET PO SCH ×3 (09:26→21:47)
[2021-11-09] MEDS: PANTOPRAZOLE 40 MG TABLET PO SCH (09:26)
[2021-11-09] MEDS: MENTHOL/ZINC OXIDE OINT 71 GM JAR TOP SCH ×3 (09:26→21:47)
[2021-11-09] MEDS: cefTRIAXone 1,000 MG in SODIUM CHLORIDE 0.9% 100 ML IV SCH (09:42)
[2021-11-09] MEDS ORDERED: POLYETHYLENE GLYCOL POWDER 17 GM PACK PO SCH (13:00)
[2021-11-09] MEDS ORDERED: AZITHROMYCIN INJ 500 MG in SODIUM CHLORIDE 0.9% 250 ML IV ONE (13:00)
[2021-11-09] MEDS: LACTULOSE 20 GM/30 ML UDCUP PO SCH ×3 (17:19→21:49)
[2021-11-09] MEDS: OXYBUTYNIN XL 15 MG TABLET PO SCH (21:47)
[2021-11-10] MEDS: SODIUM CHLORIDE 23.4% CONC INJ 38.5 MEQ, SODIUM BICARB INJ 50 MEQ in STERILE WATER INJ ... IV SCH ×4 (01:35→23:03)
[2021-11-10 05:03] LABS: Basophils % 0.3 % (0.0-0.8); Eosinophils # 0.2 10*3/uL (0.0-0.87); Eosinophils % 2.5 % (0.00-10.9); Hemoglobin 8.2 GM/DL (14.0-18.0); Immature Granulocytes % 0.9 %; Immature Granulocytes Absolute 0.08 #; Lymphocytes % 11.6 % (21.2-54.2); Mean Corpuscular HGB Conc 34.2 GM/DL (32-36); Mean Corpuscular Volume 89.6 FL (87-102); Mean Platelet Volume 13.3 FL (9.6-12.0); Neutrophils % 75.7 % (38.7-73.9); Platelet Count 66 T/CUMM (130-400); Red Blood Count 2.68 MC/CUMM (3.8-5.5); Red Cell Distribution Width 15.4 % (9.3-17.3); White Blood Count 8.7 T/CUMM (4-12)
[2021-11-10 05:28] LABS: Eosinophils 3 % (0-10); Hypochromia 1+; Lymphocytes 4 % (20-55); Microcytosis 1+; Ovalocytes Slight; Platelet Estimate Decreased; Segmented Neutrophils 87 % (50-85); Total Cells Counted 100
[2021-11-10 05:29] LABS: Calcium 7.5 MG/DL (8.5-10.1); Osmolality,Calculated 288.1 MOS/KG (273-304); Potassium 3.9 MMOL/L (3.5-5.1)
[2021-11-10] MEDS: INSULIN REGULAR 100 UNIT/ML SUBCUT SCH ×4 (09:15→21:12)
[2021-11-10] MEDS: FERROUS SULFATE 325 MG TABLET PO SCH ×2 (09:15→22:36)
[2021-11-10] MEDS: MIDODRINE 5 MG TABLET PO SCH ×3 (09:15→22:36)
[2021-11-10] MEDS: MENTHOL/ZINC OXIDE OINT 71 GM JAR TOP SCH ×3 (09:15→22:35)
[2021-11-10] MEDS: NYSTATIN POWDER 15 GM BOTTLE TOP SCH ×3 (09:15→22:36)
[2021-11-10] MEDS: PANTOPRAZOLE 40 MG TABLET PO SCH (09:15)
[2021-11-10] MEDS: LACTULOSE 20 GM/30 ML UDCUP PO SCH ×4 (09:15→22:35)
[2021-11-10] MEDS: cefTRIAXone 1,000 MG in SODIUM CHLORIDE 0.9% 100 ML IV SCH (09:16)
[2021-11-10] MEDS: OXYBUTYNIN XL 10 MG TABLET PO SCH (09:18)
[2021-11-10] MEDS: AZITHROMYCIN INJ 250 MG in SODIUM CHLORIDE 0.9% 250 ML IV SCH (10:48)
[2021-11-10] MEDS: ONDANSETRON 4 MG/2 ML VIAL IV PRN (13:05)
[2021-11-10] MEDS: ALBUTEROL/IPRATROPIUM 3 ML NEB RESP TX SCH ×2 (13:56→19:17)
[2021-11-10] MEDS: OXYBUTYNIN XL 15 MG TABLET PO SCH (22:46)
[2021-11-11] MEDS: ONDANSETRON 4 MG/2 ML VIAL IV PRN (00:12)
[2021-11-11] MEDS: ALBUTEROL/IPRATROPIUM 3 ML NEB RESP TX SCH ×4 (01:03→20:34)
[2021-11-11 01:19] LABS: Bacteria,Urine Many /HPF (Few); Bilirubin,Urine Negative (Negative); Blood, Urine Large mg/dL (Negative); Glucose,Urine (UA) Negative (Negative); Ketones,Urine Negative (Negative); Nitrite,Urine Negative (Negative); Protein,Urine 100 MG/DL; Urine Appearance CLOUDY (Clear); Urine Color Yellow (Yellow); Urine Specific Gravity 1.006 (1.001-1.035); Urine Urobilinogen < 2.0 EU/DL (<2.0)
[2021-11-11 05:01] LABS: Basophils % 0.3 % (0.0-0.8); Eosinophils # 0.1 10*3/uL (0.0-0.87); Eosinophils % 1.9 % (0.00-10.9); Hematocrit 21.9 VOL% (42.0-52.0); Hemoglobin 7.4 GM/DL (14.0-18.0); Immature Granulocytes % 1.3 %; Immature Granulocytes Absolute 0.08 #; Lymphocytes # 0.7 10*3/uL (1.4-4.0); Lymphocytes % 11.4 % (21.2-54.2); Mean Corpuscular HGB Conc 33.8 GM/DL (32-36); Mean Corpuscular Volume 89.8 FL (87-102); Mean Platelet Volume 12.4 FL (9.6-12.0); Monocytes % 9.7 % (1.7-12.7); Neutrophils % 75.4 % (38.7-73.9); Red Blood Count 2.44 MC/CUMM (3.8-5.5); Red Cell Distribution Width 15.2 % (9.3-17.3); White Blood Count 6.3 T/CUMM (4-12)
[2021-11-11 05:06] LABS: Platelet Count 74 T/CUMM (130-400)
[2021-11-11 05:18] LABS: Calcium 7.5 MG/DL (8.5-10.1); Osmolality,Calculated 283.1 MOS/KG (273-304); Potassium 3.7 MMOL/L (3.5-5.1)
[2021-11-11 07:03] LABS: Band Neutrophils 1 % (0-10); Eosinophils 1 % (0-10); Lymphocytes 3 % (20-55); Segmented Neutrophils 88 % (50-85); Total Cells Counted 100
[2021-11-11 07:04] LABS: Elliptocytes Few
[2021-11-11 07:05] LABS: Ovalocytes 1+
[2021-11-11 07:06] LABS: Hypochromia 1+; Platelet Estimate Adequate; Polychromasia Slight; Schistocytes Slight; Tear Drop Cells Slight
[2021-11-11] MEDS: cefTRIAXone 1,000 MG in SODIUM CHLORIDE 0.9% 100 ML IV SCH (10:46)
[2021-11-11] MEDS: MIDODRINE 5 MG TABLET PO SCH ×3 (10:49→23:11)
[2021-11-11] MEDS: FERROUS SULFATE 325 MG TABLET PO SCH ×2 (10:49→23:13)
[2021-11-11] MEDS: OXYBUTYNIN XL 10 MG TABLET PO SCH (10:49)
[2021-11-11] MEDS: LACTULOSE 20 GM/30 ML UDCUP PO SCH ×3 (10:49→23:12)
[2021-11-11] MEDS: MENTHOL/ZINC OXIDE OINT 71 GM JAR TOP SCH ×3 (10:50→23:12)
[2021-11-11] MEDS: PANTOPRAZOLE 40 MG TABLET PO SCH (10:54)
[2021-11-11] MEDS: AZITHROMYCIN INJ 250 MG in SODIUM CHLORIDE 0.9% 250 ML IV SCH (10:54)
[2021-11-11] MEDS: NYSTATIN POWDER 15 GM BOTTLE TOP SCH ×3 (10:55→23:13)
[2021-11-11] MEDS: INSULIN REGULAR 100 UNIT/ML SUBCUT SCH ×4 (14:48→23:12)
[2021-11-11] MEDS: OXYBUTYNIN XL 15 MG TABLET PO SCH (23:11)
[2021-11-12] MEDS: ALBUTEROL/IPRATROPIUM 3 ML NEB RESP TX SCH ×4 (01:40→21:35)
[2021-11-12] MEDS: SODIUM CHLORIDE 23.4% CONC INJ 38.5 MEQ, SODIUM BICARB INJ 50 MEQ in STERILE WATER INJ ... IV SCH ×3 (02:55→18:16)
[2021-11-12 06:17] LABS: Basophils % 0.4 % (0.0-0.8); Eosinophils # 0.2 10*3/uL (0.0-0.87); Eosinophils % 2.4 % (0.00-10.9); Hematocrit 21.6 VOL% (42.0-52.0); Hemoglobin 7.3 GM/DL (14.0-18.0); Immature Granulocytes % 1.2 %; Immature Granulocytes Absolute 0.08 #; Lymphocytes # 0.7 10*3/uL (1.4-4.0); Lymphocytes % 10.2 % (21.2-54.2); Mean Corpuscular HGB Conc 33.8 GM/DL (32-36); Mean Corpuscular Volume 90.8 FL (87-102); Mean Platelet Volume 12.1 FL (9.6-12.0); Monocytes % 9.4 % (1.7-12.7); Neutrophils % 76.4 % (38.7-73.9); Platelet Count 103 T/CUMM (130-400); Red Blood Count 2.38 MC/CUMM (3.8-5.5); Red Cell Distribution Width 15.7 % (9.3-17.3); White Blood Count 6.8 T/CUMM (4-12)
[2021-11-12 06:45] LABS: Calcium 7.6 MG/DL (8.5-10.1); Osmolality,Calculated 285.7 MOS/KG (273-304); Potassium 3.6 MMOL/L (3.5-5.1)
[2021-11-12 06:53] LABS: Band Neutrophils 2 % (0-10); Eosinophils 1 % (0-10); Hypochromia 1+; Lymphocytes 12 % (20-55); Platelet Estimate Adequate; Segmented Neutrophils 77 % (50-85); Total Cells Counted 100
[2021-11-12] MEDS: NYSTATIN POWDER 15 GM BOTTLE TOP SCH ×3 (09:44→21:20)
[2021-11-12] MEDS: MIDODRINE 5 MG TABLET PO SCH ×3 (09:44→21:18)
[2021-11-12] MEDS: OXYBUTYNIN XL 10 MG TABLET PO SCH (09:44)
[2021-11-12] MEDS: cefTRIAXone 1,000 MG in SODIUM CHLORIDE 0.9% 100 ML IV SCH (09:44)
[2021-11-12] MEDS: FERROUS SULFATE 325 MG TABLET PO SCH ×2 (09:44→21:18)
[2021-11-12] MEDS: PANTOPRAZOLE 40 MG TABLET PO SCH (09:44)
[2021-11-12] MEDS: MENTHOL/ZINC OXIDE OINT 71 GM JAR TOP SCH ×3 (09:44→21:20)
[2021-11-12] MEDS: INSULIN REGULAR 100 UNIT/ML SUBCUT SCH ×4 (10:02→22:37)
[2021-11-12] MEDS: LACTULOSE 20 GM/30 ML UDCUP PO SCH ×3 (10:03→21:19)
[2021-11-12] MEDS: AZITHROMYCIN INJ 250 MG in SODIUM CHLORIDE 0.9% 250 ML IV SCH (10:52)
[2021-11-12] MEDS: ACETAMINOPHEN 325 MG TABLET PO PRN (21:17)
[2021-11-12] MEDS: OXYBUTYNIN XL 15 MG TABLET PO SCH (21:18)
[2021-11-12 21:54] LABS: Glucose,Urine (UA) Negative (Negative); Protein,Urine 100 MG/DL; RBC,Urine 499 /HPF (0-4); Urine Appearance Turbid (Clear); Urine Color Amber (Yellow)
[2021-11-12 21:55] LABS: Bilirubin,Urine Negative (Negative); Blood, Urine 1+ mg/dL (Negative); Ketones,Urine Negative (Negative); Nitrite,Urine Negative (Negative); Urine Urobilinogen < 2.0 EU/DL (<2.0)
[2021-11-13] MEDS: ALBUTEROL/IPRATROPIUM 3 ML NEB RESP TX SCH ×4 (00:21→21:12)
[2021-11-13 05:37] LABS: Basophils % 0.3 % (0.0-0.8); Hematocrit 20.3 VOL% (42.0-52.0); Hemoglobin 6.7 GM/DL (14.0-18.0); Immature Granulocytes % 1.1 %; Lymphocytes # 0.7 10*3/uL (1.4-4.0); Mean Corpuscular Volume 92.3 FL (87-102); Mean Platelet Volume 11.4 FL (9.6-12.0); Monocytes % 6.3 % (1.7-12.7); Neutrophils % 85.3 % (38.7-73.9); Red Cell Distribution Width 15.5 % (9.3-17.3); White Blood Count 9.5 T/CUMM (4-12)
[2021-11-13 05:59] LABS: Calcium 7.4 MG/DL (8.5-10.1); Potassium 3.5 MMOL/L (3.5-5.1)
[2021-11-13 06:10] LABS: Platelet Count 78 T/CUMM (130-400)
[2021-11-13 06:29] LABS: Band Neutrophils 6 % (0-10); Hypochromia 1+; Lymphocytes 6 % (20-55); Segmented Neutrophils 81 % (50-85); Total Cells Counted 100
[2021-11-13 06:30] LABS: Microcytosis 1+; Ovalocytes Few; Platelet Estimate Decreased
[2021-11-13] MEDS ORDERED: SODIUM CHLORIDE 0.9% 1,000 ML IV PRN (07:28)
[2021-11-13] MEDS ORDERED: MAGNESIUM SULF RIDER 2 GM/50 ML PREMIX IV ONE (07:29)
[2021-11-13] MEDS: cefTRIAXone 1,000 MG in SODIUM CHLORIDE 0.9% 100 ML IV SCH (10:14)
[2021-11-13] MEDS: MIDODRINE 5 MG TABLET PO SCH ×3 (10:17→23:16)
[2021-11-13] MEDS: OXYBUTYNIN XL 10 MG TABLET PO SCH (10:17)
[2021-11-13] MEDS: FERROUS SULFATE 325 MG TABLET PO SCH ×2 (10:17→23:16)
[2021-11-13] MEDS: MENTHOL/ZINC OXIDE OINT 71 GM JAR TOP SCH ×3 (10:18→23:21)
[2021-11-13] MEDS: INSULIN REGULAR 100 UNIT/ML SUBCUT SCH ×4 (10:18→23:18)
[2021-11-13] MEDS: LACTULOSE 20 GM/30 ML UDCUP PO SCH ×3 (10:19→23:16)
[2021-11-13] MEDS: NYSTATIN POWDER 15 GM BOTTLE TOP SCH ×3 (10:19→23:21)
[2021-11-13] MEDS: PANTOPRAZOLE 40 MG TABLET PO SCH (10:19)
[2021-11-13] MEDS: SODIUM CHLORIDE 23.4% CONC INJ 38.5 MEQ, SODIUM BICARB INJ 50 MEQ in STERILE WATER INJ ... IV SCH (14:58)
[2021-11-13] MEDS: MEROPENEM 500 MG in SODIUM CHLORIDE 0.9% 100 ML IV SCH ×2 (15:42→23:17)
[2021-11-13] MEDS: VANCOMYCIN INJ 1,250 MG in SODIUM CHLORIDE 0.9% 250 ML IV SCH (15:46)
[2021-11-13] MEDS: AZITHROMYCIN INJ 250 MG in SODIUM CHLORIDE 0.9% 250 ML IV SCH (18:11)
[2021-11-13] MEDS: OXYBUTYNIN XL 15 MG TABLET PO SCH (23:17)
[2021-11-14] MEDS: ALBUTEROL/IPRATROPIUM 3 ML NEB RESP TX SCH ×3 (00:08→13:24)
[2021-11-14] MEDS: ACETAMINOPHEN 325 MG TABLET PO PRN (03:14)
[2021-11-14] MEDS: MEROPENEM 500 MG in SODIUM CHLORIDE 0.9% 100 ML IV SCH ×3 (06:03→21:27)
[2021-11-14] MEDS: SODIUM CHLORIDE 23.4% CONC INJ 38.5 MEQ, SODIUM BICARB INJ 50 MEQ in STERILE WATER INJ ... IV SCH ×4 (06:09→15:41)
[2021-11-14 06:19] LABS: Basophils % 0.3 % (0.0-0.8); Eosinophils # 0.2 10*3/uL (0.0-0.87); Eosinophils % 2.1 % (0.00-10.9); Hematocrit 21.4 VOL% (42.0-52.0); Hemoglobin 7.1 GM/DL (14.0-18.0); Immature Granulocytes % 0.8 %; Immature Granulocytes Absolute 0.06 #; Lymphocytes # 0.7 10*3/uL (1.4-4.0); Lymphocytes % 9.3 % (21.2-54.2); Mean Corpuscular HGB Conc 33.2 GM/DL (32-36); Mean Platelet Volume 11.6 FL (9.6-12.0); Monocytes % 7.9 % (1.7-12.7); Neutrophils % 79.6 % (38.7-73.9); Platelet Count 103 T/CUMM (130-400); Red Cell Distribution Width 15.8 % (9.3-17.3); White Blood Count 7.3 T/CUMM (4-12)
[2021-11-14 06:51] LABS: Calcium 7.6 MG/DL (8.5-10.1); Osmolality,Calculated 282.7 MOS/KG (273-304); Potassium 3.1 MMOL/L (3.5-5.1)
[2021-11-14 07:06] LABS: Eosinophils 3 % (0-10); Hypochromia 1+; Lymphocytes 4 % (20-55); Microcytosis 1+; Ovalocytes Slight; Platelet Estimate Decreased; Segmented Neutrophils 89 % (50-85); Total Cells Counted 100
[2021-11-14] MEDS ORDERED: POTASSIUM CHLORIDE 20 MEQ TABLET PO ONE (08:24)
[2021-11-14] MEDS: OXYBUTYNIN XL 10 MG TABLET PO SCH (10:04)
[2021-11-14] MEDS: PANTOPRAZOLE 40 MG TABLET PO SCH (10:04)
[2021-11-14] MEDS: FERROUS SULFATE 325 MG TABLET PO SCH ×2 (10:05→21:24)
[2021-11-14] MEDS: MIDODRINE 5 MG TABLET PO SCH ×3 (10:05→21:24)
[2021-11-14] MEDS: LACTULOSE 20 GM/30 ML UDCUP PO SCH ×3 (10:06→23:18)
[2021-11-14] MEDS: INSULIN REGULAR 100 UNIT/ML SUBCUT SCH ×4 (11:47→21:09)
[2021-11-14] MEDS: MENTHOL/ZINC OXIDE OINT 71 GM JAR TOP SCH ×3 (13:58→21:24)
[2021-11-14] MEDS: NYSTATIN POWDER 15 GM BOTTLE TOP SCH ×3 (13:58→21:24)
[2021-11-14] MEDS: VANCOMYCIN INJ 1,250 MG in SODIUM CHLORIDE 0.9% 250 ML IV SCH (15:42)
[2021-11-14] MEDS: OXYBUTYNIN XL 15 MG TABLET PO SCH (21:24)
[2021-11-15] MEDS: ONDANSETRON 4 MG/2 ML VIAL IV PRN (01:10)
[2021-11-15 05:26] LABS: Basophils % 0.3 % (0.0-0.8); Eosinophils # 0.2 10*3/uL (0.0-0.87); Eosinophils % 1.6 % (0.00-10.9); Hematocrit 31.6 VOL% (42.0-52.0); Lymphocytes # 1.1 10*3/uL (1.4-4.0); Lymphocytes % 10.8 % (21.2-54.2); Mean Corpuscular HGB Conc 33.5 GM/DL (32-36); Mean Corpuscular Volume 91.9 FL (87-102); Mean Platelet Volume 10.9 FL (9.6-12.0); Monocytes % 5.8 % (1.7-12.7); Neutrophils % 80.5 % (38.7-73.9); Platelet Count 127 T/CUMM (130-400); White Blood Count 9.9 T/CUMM (4-12)
[2021-11-15 05:34] LABS: Hemoglobin 10.6 GM/DL (14.0-18.0); Red Blood Count 3.44 MC/CUMM (3.8-5.5)
[2021-11-15 05:48] LABS: Eosinophils 1 % (0-10); Lymphocytes 3 % (20-55); Platelet Estimate Normal; Segmented Neutrophils 92 % (50-85); Total Cells Counted 100
[2021-11-15 05:49] LABS: Hypochromia 1+; Microcytosis 1+; Ovalocytes Slight
[2021-11-15 05:50] LABS: Calcium 7.5 MG/DL (8.5-10.1); Osmolality,Calculated 280.5 MOS/KG (273-304); Potassium 3.4 MMOL/L (3.5-5.1)
[2021-11-15] MEDS: MEROPENEM 500 MG in SODIUM CHLORIDE 0.9% 100 ML IV SCH ×3 (07:15→22:32)
[2021-11-15] MEDS: SODIUM CHLORIDE 23.4% CONC INJ 38.5 MEQ, SODIUM BICARB INJ 50 MEQ in STERILE WATER INJ ... IV SCH ×2 (08:10→15:36)
[2021-11-15] MEDS: INSULIN REGULAR 100 UNIT/ML SUBCUT SCH ×4 (08:11→22:01)
[2021-11-15] MEDS ORDERED: POTASSIUM CHLORIDE 20 MEQ TABLET PO ONE (09:00)
[2021-11-15] MEDS: NYSTATIN POWDER 15 GM BOTTLE TOP SCH ×3 (09:46→21:57)
[2021-11-15] MEDS: OXYBUTYNIN XL 10 MG TABLET PO SCH (09:46)
[2021-11-15] MEDS: MIDODRINE 5 MG TABLET PO SCH ×3 (09:46→21:56)
[2021-11-15] MEDS: FERROUS SULFATE 325 MG TABLET PO SCH ×2 (09:46→21:56)
[2021-11-15] MEDS: PANTOPRAZOLE 40 MG TABLET PO SCH (09:46)
[2021-11-15] MEDS: MENTHOL/ZINC OXIDE OINT 71 GM JAR TOP SCH ×3 (09:46→21:56)
[2021-11-15] MEDS: LACTULOSE 20 GM/30 ML UDCUP PO SCH ×4 (09:46→22:01)
[2021-11-15] MEDS: VANCOMYCIN INJ 1,250 MG in SODIUM CHLORIDE 0.9% 250 ML IV SCH (09:47)
[2021-11-15] MEDS: OXYBUTYNIN XL 15 MG TABLET PO SCH (21:56)
[2021-11-16] MEDS: SODIUM CHLORIDE 23.4% CONC INJ 38.5 MEQ, SODIUM BICARB INJ 50 MEQ in STERILE WATER INJ ... IV SCH ×2 (00:50→16:40)
[2021-11-16] MEDS: VANCOMYCIN INJ 1,250 MG in SODIUM CHLORIDE 0.9% 250 ML IV SCH ×2 (02:20→21:16)
[2021-11-16 05:49] LABS: Basophils % 0.4 % (0.0-0.8); Eosinophils # 0.2 10*3/uL (0.0-0.87); Hematocrit 29.9 VOL% (42.0-52.0); Hemoglobin 10.2 GM/DL (14.0-18.0); Immature Granulocytes Absolute 0.11 #; Lymphocytes # 1.1 10*3/uL (1.4-4.0); Lymphocytes % 10.5 % (21.2-54.2); Mean Corpuscular HGB Conc 34.1 GM/DL (32-36); Mean Corpuscular Volume 90.3 FL (87-102); Monocytes % 5.9 % (1.7-12.7); Neutrophils % 80.2 % (38.7-73.9); Platelet Count 129 T/CUMM (130-400); Red Blood Count 3.31 MC/CUMM (3.8-5.5); Red Cell Distribution Width 15.1 % (9.3-17.3); White Blood Count 10.6 T/CUMM (4-12)
[2021-11-16 06:12] LABS: Albumin 1.8 G/DL (3.4-5.0); Bilirubin,Total 1.5 MG/DL (0.20-1.00); Calcium 7.4 MG/DL (8.5-10.1); Osmolality,Calculated 279.4 MOS/KG (273-304); Potassium 3.3 MMOL/L (3.5-5.1); Total Protein 6.6 G/DL (6.4-8.2)
[2021-11-16 06:14] LABS: Anisocytosis 1+; Band Neutrophils 17 % (0-10); Burr Cells Few; Eosinophils 2 % (0-10); Lymphocytes 6 % (20-55); Ovalocytes Few; Platelet Estimate Adequate; Segmented Neutrophils 69 % (50-85); Smudge Cells Few; Total Cells Counted 100
[2021-11-16 06:15] LABS: Macrocytosis Slight
[2021-11-16] MEDS: MEROPENEM 500 MG in SODIUM CHLORIDE 0.9% 100 ML IV SCH (06:24)
[2021-11-16] MEDS: INSULIN REGULAR 100 UNIT/ML SUBCUT SCH ×4 (08:42→20:16)
[2021-11-16] MEDS: MENTHOL/ZINC OXIDE OINT 71 GM JAR TOP SCH ×3 (09:23→21:14)
[2021-11-16] MEDS: NYSTATIN POWDER 15 GM BOTTLE TOP SCH ×3 (09:23→21:13)
[2021-11-16] MEDS: LACTULOSE 20 GM/30 ML UDCUP PO SCH ×4 (09:24→21:13)
[2021-11-16] MEDS: PANTOPRAZOLE 40 MG TABLET PO SCH (09:24)
[2021-11-16] MEDS: OXYBUTYNIN XL 10 MG TABLET PO SCH (09:24)
[2021-11-16] MEDS: MIDODRINE 5 MG TABLET PO SCH ×3 (09:24→21:13)
[2021-11-16] MEDS: FERROUS SULFATE 325 MG TABLET PO SCH ×2 (09:24→21:13)
[2021-11-16] MEDS: OXYBUTYNIN XL 15 MG TABLET PO SCH (21:13)
[2021-11-17 05:27] LABS: Basophils % 0.3 % (0.0-0.8); Eosinophils # 0.2 10*3/uL (0.0-0.87); Eosinophils % 1.7 % (0.00-10.9); Hematocrit 29.2 VOL% (42.0-52.0); Hemoglobin 9.8 GM/DL (14.0-18.0); Immature Granulocytes % 0.9 %; Immature Granulocytes Absolute 0.09 #; Lymphocytes # 1.2 10*3/uL (1.4-4.0); Lymphocytes % 11.9 % (21.2-54.2); Mean Corpuscular HGB Conc 33.6 GM/DL (32-36); Mean Corpuscular Volume 90.4 FL (87-102); Mean Platelet Volume 10.9 FL (9.6-12.0); Monocytes % 6.9 % (1.7-12.7); Neutrophils % 78.3 % (38.7-73.9); Platelet Count 134 T/CUMM (130-400); Red Blood Count 3.23 MC/CUMM (3.8-5.5); White Blood Count 9.8 T/CUMM (4-12)
[2021-11-17 05:50] LABS: Albumin 1.9 G/DL (3.4-5.0); Bilirubin,Total 1.5 MG/DL (0.20-1.00); Calcium 7.3 MG/DL (8.5-10.1); Osmolality,Calculated 278.4 MOS/KG (273-304); Potassium 3.1 MMOL/L (3.5-5.1); Total Protein 6.7 G/DL (6.4-8.2)
[2021-11-17 05:51] LABS: Anisocytosis 1+; Band Neutrophils 8 % (0-10); Eosinophils 2 % (0-10); Lymphocytes 7 % (20-55); Macrocytosis Slight; Ovalocytes Few; Platelet Estimate Adequate; Segmented Neutrophils 80 % (50-85); Smudge Cells Few; Total Cells Counted 100
[2021-11-17 05:54] LABS: Calcium 7.1 MG/DL (8.5-10.1); Osmolality,Calculated 281.1 MOS/KG (273-304); Potassium 3.2 MMOL/L (3.5-5.1)
[2021-11-17] MEDS: INSULIN REGULAR 100 UNIT/ML SUBCUT SCH ×4 (07:53→23:14)
[2021-11-17] MEDS: PANTOPRAZOLE 40 MG TABLET PO SCH (08:43)
[2021-11-17] MEDS: LACTULOSE 20 GM/30 ML UDCUP PO SCH ×3 (08:43→23:13)
[2021-11-17] MEDS: FERROUS SULFATE 325 MG TABLET PO SCH ×2 (08:43→23:12)
[2021-11-17] MEDS: MIDODRINE 5 MG TABLET PO SCH ×3 (08:43→23:12)
[2021-11-17] MEDS: MENTHOL/ZINC OXIDE OINT 71 GM JAR TOP SCH ×3 (08:44→23:12)
[2021-11-17] MEDS: NYSTATIN POWDER 15 GM BOTTLE TOP SCH ×3 (08:44→23:13)
[2021-11-17] MEDS: OXYBUTYNIN XL 10 MG TABLET PO SCH (08:46)
[2021-11-17] MEDS: SODIUM CHLORIDE 23.4% CONC INJ 38.5 MEQ, SODIUM BICARB INJ 50 MEQ in STERILE WATER INJ ... IV SCH ×3 (13:20→23:14)
[2021-11-17] MEDS: VANCOMYCIN INJ 1,250 MG in SODIUM CHLORIDE 0.9% 250 ML IV SCH (18:27)
[2021-11-17] MEDS: OXYBUTYNIN XL 15 MG TABLET PO SCH (23:12)
[2021-11-18] MEDS: SODIUM CHLORIDE 23.4% CONC INJ 38.5 MEQ, SODIUM BICARB INJ 50 MEQ in STERILE WATER INJ ... IV SCH ×2 (04:42→18:02)
[2021-11-18 05:31] LABS: Basophils % 0.4 % (0.0-0.8); Eosinophils # 0.1 10*3/uL (0.0-0.87); Eosinophils % 1.3 % (0.00-10.9); Hematocrit 28.9 VOL% (42.0-52.0); Hemoglobin 9.5 GM/DL (14.0-18.0); Lymphocytes # 1.1 10*3/uL (1.4-4.0); Lymphocytes % 10.5 % (21.2-54.2); Mean Corpuscular HGB Conc 32.9 GM/DL (32-36); Mean Corpuscular Volume 91.2 FL (87-102); Mean Platelet Volume 10.4 FL (9.6-12.0); Monocytes % 6.5 % (1.7-12.7); Neutrophils % 80.3 % (38.7-73.9); Platelet Count 113 T/CUMM (130-400); Red Blood Count 3.17 MC/CUMM (3.8-5.5); Red Cell Distribution Width 15.1 % (9.3-17.3); White Blood Count 10.1 T/CUMM (4-12)
[2021-11-18 06:16] LABS: Albumin 1.4 G/DL (3.4-5.0); Bilirubin,Total 2.8 MG/DL (0.20-1.00); Osmolality,Calculated 281.1 MOS/KG (273-304); Potassium 3.3 MMOL/L (3.5-5.1); Total Protein 6.4 G/DL (6.4-8.2)
[2021-11-18] MEDS: INSULIN REGULAR 100 UNIT/ML SUBCUT SCH ×4 (09:59→22:44)
[2021-11-18] MEDS: MENTHOL/ZINC OXIDE OINT 71 GM JAR TOP SCH ×3 (10:40→22:43)
[2021-11-18] MEDS: LACTULOSE 20 GM/30 ML UDCUP PO SCH ×3 (10:41→22:41)
[2021-11-18] MEDS: PANTOPRAZOLE 40 MG TABLET PO SCH (10:41)
[2021-11-18] MEDS: NYSTATIN POWDER 15 GM BOTTLE TOP SCH ×3 (10:41→22:43)
[2021-11-18] MEDS: MIDODRINE 5 MG TABLET PO SCH ×3 (10:41→22:41)
[2021-11-18] MEDS: FERROUS SULFATE 325 MG TABLET PO SCH ×2 (10:41→22:41)
[2021-11-18] MEDS: OXYBUTYNIN XL 10 MG TABLET PO SCH (10:41)
[2021-11-18] MEDS: VANCOMYCIN INJ 1,250 MG in SODIUM CHLORIDE 0.9% 250 ML IV SCH (10:43)
[2021-11-18] MEDS: POTASSIUM CHLORIDE 20 MEQ TABLET PO PRN (16:56)
[2021-11-18] MEDS: OXYBUTYNIN XL 15 MG TABLET PO SCH (22:41)
[2021-11-19] MEDS: SODIUM CHLORIDE 23.4% CONC INJ 38.5 MEQ, SODIUM BICARB INJ 50 MEQ in STERILE WATER INJ ... IV SCH ×2 (02:37→16:13)
[2021-11-19] MEDS: VANCOMYCIN INJ 1,250 MG in SODIUM CHLORIDE 0.9% 250 ML IV SCH ×2 (02:42→20:56)
[2021-11-19 06:00] LABS: Calcium 7.3 MG/DL (8.5-10.1); Osmolality,Calculated 278.3 MOS/KG (273-304); Potassium 3.2 MMOL/L (3.5-5.1)
[2021-11-19] MEDS: INSULIN REGULAR 100 UNIT/ML SUBCUT SCH ×4 (08:08→20:51)
[2021-11-19] MEDS: NYSTATIN POWDER 15 GM BOTTLE TOP SCH ×3 (10:59→20:54)
[2021-11-19] MEDS: OXYBUTYNIN XL 10 MG TABLET PO SCH (10:59)
[2021-11-19] MEDS: PANTOPRAZOLE 40 MG TABLET PO SCH (10:59)
[2021-11-19] MEDS: MENTHOL/ZINC OXIDE OINT 71 GM JAR TOP SCH ×3 (10:59→20:53)
[2021-11-19] MEDS: MIDODRINE 5 MG TABLET PO SCH ×3 (10:59→20:53)
[2021-11-19] MEDS: FERROUS SULFATE 325 MG TABLET PO SCH ×2 (10:59→20:53)
[2021-11-19] MEDS: LACTULOSE 20 GM/30 ML UDCUP PO SCH ×3 (11:00→20:53)
[2021-11-19] MEDS: OXYBUTYNIN XL 15 MG TABLET PO SCH (20:53)
[2021-11-20] MEDS: SODIUM CHLORIDE 23.4% CONC INJ 38.5 MEQ, SODIUM BICARB INJ 50 MEQ in STERILE WATER INJ ... IV SCH ×3 (02:23→21:31)
[2021-11-20] MEDS: MIDODRINE 5 MG TABLET PO SCH ×3 (10:37→21:29)
[2021-11-20] MEDS: LACTULOSE 20 GM/30 ML UDCUP PO SCH ×4 (10:38→21:45)
[2021-11-20] MEDS: MENTHOL/ZINC OXIDE OINT 71 GM JAR TOP SCH ×3 (10:38→21:31)
[2021-11-20] MEDS: PANTOPRAZOLE 40 MG TABLET PO SCH (10:38)
[2021-11-20] MEDS: NYSTATIN POWDER 15 GM BOTTLE TOP SCH ×3 (10:38→21:31)
[2021-11-20] MEDS: FERROUS SULFATE 325 MG TABLET PO SCH ×2 (10:38→21:29)
[2021-11-20] MEDS: OXYBUTYNIN XL 10 MG TABLET PO SCH (10:38)
[2021-11-20] MEDS: INSULIN REGULAR 100 UNIT/ML SUBCUT SCH ×4 (10:38→21:45)
[2021-11-20] MEDS: VANCOMYCIN INJ 1,250 MG in SODIUM CHLORIDE 0.9% 250 ML IV SCH (14:55)
[2021-11-20] MEDS: OXYBUTYNIN XL 15 MG TABLET PO SCH (21:29)
[2021-11-21] MEDS: SODIUM CHLORIDE 23.4% CONC INJ 38.5 MEQ, SODIUM BICARB INJ 50 MEQ in STERILE WATER INJ ... IV SCH ×2 (05:00→21:51)
[2021-11-21 06:22] LABS: Basophils # 0.1 10*3/uL (0.0-0.2); Basophils % 0.6 % (0.0-0.8); Eosinophils # 0.1 10*3/uL (0.0-0.87); Eosinophils % 1.2 % (0.00-10.9); Hematocrit 25.2 VOL% (42.0-52.0); Hemoglobin 8.5 GM/DL (14.0-18.0); Immature Granulocytes Absolute 0.08 #; Lymphocytes # 1.1 10*3/uL (1.4-4.0); Lymphocytes % 13.1 % (21.2-54.2); Mean Corpuscular HGB Conc 33.7 GM/DL (32-36); Mean Corpuscular Volume 90.6 FL (87-102); Mean Platelet Volume 10.7 FL (9.6-12.0); Monocytes % 5.9 % (1.7-12.7); Neutrophils % 78.2 % (38.7-73.9); Platelet Count 77 T/CUMM (130-400); Red Blood Count 2.78 MC/CUMM (3.8-5.5); Red Cell Distribution Width 15.5 % (9.3-17.3); White Blood Count 8.4 T/CUMM (4-12)
[2021-11-21 06:43] LABS: Hypochromia 1+; Ovalocytes Few
[2021-11-21 06:44] LABS: Microcytosis 1+; Polychromasia Slight
[2021-11-21 06:45] LABS: Platelet Estimate Decreased
[2021-11-21 06:46] LABS: Calcium 6.7 MG/DL (8.5-10.1); Osmolality,Calculated 279.3 MOS/KG (273-304); Potassium 2.9 MMOL/L (3.5-5.1)
[2021-11-21] MEDS: INSULIN REGULAR 100 UNIT/ML SUBCUT SCH ×4 (07:31→21:57)
[2021-11-21] MEDS ORDERED: LINEZOLID INJ 600 MG/300 ML PREMIX IV SCH (08:30)
[2021-11-21] MEDS ORDERED: POTASSIUM CHLORIDE 20 MEQ PACK PO ONE (09:00)
[2021-11-21] MEDS ORDERED: MAGNESIUM SULF RIDER 4 GM/100 ML PREMIX IV ONE (09:00)
[2021-11-21] MEDS: FERROUS SULFATE 325 MG TABLET PO SCH ×2 (10:35→21:52)
[2021-11-21] MEDS: OXYBUTYNIN XL 10 MG TABLET PO SCH (10:35)
[2021-11-21] MEDS: MIDODRINE 5 MG TABLET PO SCH ×3 (10:35→21:52)
[2021-11-21] MEDS: POTASSIUM CHLORIDE 20 MEQ TABLET PO PRN (10:35)
[2021-11-21] MEDS: PANTOPRAZOLE 40 MG TABLET PO SCH (10:36)
[2021-11-21] MEDS: LACTULOSE 20 GM/30 ML UDCUP PO SCH ×4 (10:36→21:56)
[2021-11-21] MEDS: MENTHOL/ZINC OXIDE OINT 71 GM JAR TOP SCH ×3 (10:36→21:57)
[2021-11-21] MEDS: NYSTATIN POWDER 15 GM BOTTLE TOP SCH ×3 (10:37→21:53)
[2021-11-21] MEDS ORDERED: TUBERCULIN SKIN TEST 0.1 ML SYRINGE INTRADERM ONE (11:00)
[2021-11-21] MEDS ORDERED: Biktarvy PO SCH (13:30)
[2021-11-21] MEDS: OXYBUTYNIN XL 15 MG TABLET PO SCH (21:52)
[2021-11-22] MEDS: ONDANSETRON 4 MG/2 ML VIAL IV PRN (03:09)
[2021-11-22] MEDS: ACETAMINOPHEN 325 MG TABLET PO PRN (03:11)
[2021-11-22 05:37] LABS: Basophils % 0.2 % (0.0-0.8); Eosinophils # 0.1 10*3/uL (0.0-0.87); Eosinophils % 0.4 % (0.00-10.9); Hematocrit 28.1 VOL% (42.0-52.0); Hemoglobin 9.5 GM/DL (14.0-18.0); Immature Granulocytes % 0.8 %; Immature Granulocytes Absolute 0.15 #; Lymphocytes # 0.9 10*3/uL (1.4-4.0); Mean Corpuscular HGB Conc 33.8 GM/DL (32-36); Mean Corpuscular Volume 91.2 FL (87-102); Neutrophils % 89.6 % (38.7-73.9); Platelet Count 85 T/CUMM (130-400); Red Blood Count 3.08 MC/CUMM (3.8-5.5); Red Cell Distribution Width 15.9 % (9.3-17.3); White Blood Count 18.1 T/CUMM (4-12)
[2021-11-22 05:54] LABS: Calcium 7.2 MG/DL (8.5-10.1); Osmolality,Calculated 273.7 MOS/KG (273-304); Potassium 3.3 MMOL/L (3.5-5.1)
[2021-11-22 06:03] LABS: Hypochromia Slight; Lymphocytes 3 % (20-55); Microcytosis Slight; Platelet Estimate Decreased; Segmented Neutrophils 96 % (50-85); Total Cells Counted 100
[2021-11-22] MEDS: INSULIN REGULAR 100 UNIT/ML SUBCUT SCH ×4 (08:27→22:22)
[2021-11-22] MEDS: PANTOPRAZOLE 40 MG TABLET PO SCH (10:01)
[2021-11-22] MEDS: OXYBUTYNIN XL 10 MG TABLET PO SCH (10:01)
[2021-11-22] MEDS: MIDODRINE 5 MG TABLET PO SCH ×3 (10:01→22:26)
[2021-11-22] MEDS: LACTULOSE 20 GM/30 ML UDCUP PO SCH ×3 (10:02→22:22)
[2021-11-22] MEDS: POTASSIUM CHLORIDE 20 MEQ TABLET PO PRN ×3 (10:02→22:26)
[2021-11-22] MEDS: FERROUS SULFATE 325 MG TABLET PO SCH ×2 (10:02→22:26)
[2021-11-22] MEDS: NYSTATIN POWDER 15 GM BOTTLE TOP SCH ×3 (10:04→22:27)
[2021-11-22] MEDS: MENTHOL/ZINC OXIDE OINT 71 GM JAR TOP SCH ×3 (10:04→22:27)
[2021-11-22] MEDS ORDERED: LIDOCAINE 2% TOP JELLY 20 ML VIAL INTRAURETH ONE ×2 (12:32→14:28)
[2021-11-22] MEDS ORDERED: MEPERIDINE 50 MG/1 ML VIAL IV ONE (16:21)
[2021-11-22] MEDS: OXYBUTYNIN XL 15 MG TABLET PO SCH (22:26)
[2021-11-23] MEDS: ACETAMINOPHEN 325 MG TABLET PO PRN ×2 (01:02→22:02)
[2021-11-23 05:26] LABS: Basophils # 0.1 10*3/uL (0.0-0.2); Basophils % 0.6 % (0.0-0.8); Eosinophils # 0.1 10*3/uL (0.0-0.87); Eosinophils % 0.6 % (0.00-10.9); Hemoglobin 8.7 GM/DL (14.0-18.0); Immature Granulocytes % 0.6 %; Immature Granulocytes Absolute 0.06 #; Lymphocytes % 10.3 % (21.2-54.2); Mean Corpuscular HGB Conc 33.5 GM/DL (32-36); Mean Corpuscular Volume 92.2 FL (87-102); Mean Platelet Volume 11.1 FL (9.6-12.0); Monocytes % 6.1 % (1.7-12.7); Neutrophils % 81.8 % (38.7-73.9); Red Blood Count 2.82 MC/CUMM (3.8-5.5); Red Cell Distribution Width 16.1 % (9.3-17.3); White Blood Count 9.9 T/CUMM (4-12)
[2021-11-23 05:29] LABS: Platelet Count 67 T/CUMM (130-400)
[2021-11-23 05:44] LABS: Anisocytosis 1+; Ovalocytes Few; Platelet Estimate Decreased
[2021-11-23 05:45] LABS: Macrocytosis Slight
[2021-11-23 05:51] LABS: Calcium 7.4 MG/DL (8.5-10.1); Osmolality,Calculated 272.7 MOS/KG (273-304); Potassium 3.3 MMOL/L (3.5-5.1)
[2021-11-23] MEDS: INSULIN REGULAR 100 UNIT/ML SUBCUT SCH ×4 (09:43→22:02)
[2021-11-23] MEDS: OXYBUTYNIN XL 10 MG TABLET PO SCH (09:48)
[2021-11-23] MEDS: POTASSIUM CHLORIDE 20 MEQ TABLET PO PRN ×3 (09:48→16:44)
[2021-11-23] MEDS: PANTOPRAZOLE 40 MG TABLET PO SCH (09:49)
[2021-11-23] MEDS: FERROUS SULFATE 325 MG TABLET PO SCH ×2 (09:49→22:02)
[2021-11-23] MEDS: LACTULOSE 20 GM/30 ML UDCUP PO SCH ×4 (09:49→22:31)
[2021-11-23] MEDS: MIDODRINE 5 MG TABLET PO SCH ×3 (09:49→22:02)
[2021-11-23] MEDS: NYSTATIN POWDER 15 GM BOTTLE TOP SCH ×3 (09:51→22:03)
[2021-11-23] MEDS: MENTHOL/ZINC OXIDE OINT 71 GM JAR TOP SCH ×3 (09:51→22:03)
[2021-11-23] MEDS: OXYBUTYNIN XL 15 MG TABLET PO SCH (22:02)
[2021-11-24 06:14] LABS: Basophils # 0.1 10*3/uL (0.0-0.2); Basophils % 0.7 % (0.0-0.8); Eosinophils # 0.1 10*3/uL (0.0-0.87); Eosinophils % 0.7 % (0.00-10.9); Hematocrit 26.8 VOL% (42.0-52.0); Hemoglobin 9.1 GM/DL (14.0-18.0); Immature Granulocytes % 0.8 %; Immature Granulocytes Absolute 0.11 #; Lymphocytes # 1.5 10*3/uL (1.4-4.0); Lymphocytes % 10.6 % (21.2-54.2); Mean Corpuscular Volume 92.4 FL (87-102); Mean Platelet Volume 10.5 FL (9.6-12.0); Monocytes % 6.2 % (1.7-12.7); Platelet Count 55 T/CUMM (130-400); Red Cell Distribution Width 16.6 % (9.3-17.3); White Blood Count 13.8 T/CUMM (4-12)
[2021-11-24 06:25] LABS: Calcium 7.5 MG/DL (8.5-10.1); Osmolality,Calculated 271.8 MOS/KG (273-304); Potassium 3.9 MMOL/L (3.5-5.1)
[2021-11-24] MEDS: INSULIN REGULAR 100 UNIT/ML SUBCUT SCH ×4 (07:50→20:47)
[2021-11-24] MEDS: SODIUM CHLORIDE 23.4% CONC INJ 38.5 MEQ, SODIUM BICARB INJ 50 MEQ in STERILE WATER INJ ... IV SCH (07:51)
[2021-11-24] MEDS: LACTULOSE 20 GM/30 ML UDCUP PO SCH ×3 (08:53→20:47)
[2021-11-24] MEDS: OXYBUTYNIN XL 10 MG TABLET PO SCH (08:54)
[2021-11-24] MEDS: NYSTATIN POWDER 15 GM BOTTLE TOP SCH ×3 (08:54→20:48)
[2021-11-24] MEDS: FERROUS SULFATE 325 MG TABLET PO SCH ×2 (08:54→20:46)
[2021-11-24] MEDS: MENTHOL/ZINC OXIDE OINT 71 GM JAR TOP SCH ×3 (08:54→20:47)
[2021-11-24] MEDS: MIDODRINE 5 MG TABLET PO SCH ×3 (08:54→20:46)
[2021-11-24] MEDS: PANTOPRAZOLE 40 MG TABLET PO SCH (08:54)
[2021-11-24] MEDS: VANCOMYCIN INJ 1,250 MG in SODIUM CHLORIDE 0.9% 250 ML IV SCH (10:09)
[2021-11-24] MEDS: ACETAMINOPHEN 325 MG TABLET PO PRN (20:46)
[2021-11-24] MEDS: OXYBUTYNIN XL 15 MG TABLET PO SCH (20:47)
[2021-11-25 05:00] LABS: Basophils # 0.1 10*3/uL (0.0-0.2); Basophils % 0.7 % (0.0-0.8); Eosinophils # 0.2 10*3/uL (0.0-0.87); Eosinophils % 2.2 % (0.00-10.9); Hematocrit 26.4 VOL% (42.0-52.0); Hemoglobin 8.6 GM/DL (14.0-18.0); Immature Granulocytes % 0.6 %; Immature Granulocytes Absolute 0.05 #; Lymphocytes % 12.5 % (21.2-54.2); Mean Corpuscular HGB Conc 32.6 GM/DL (32-36); Mean Corpuscular Volume 93.3 FL (87-102); Monocytes % 7.5 % (1.7-12.7); Neutrophils % 76.5 % (38.7-73.9); Red Blood Count 2.83 MC/CUMM (3.8-5.5); Red Cell Distribution Width 16.4 % (9.3-17.3)
[2021-11-25 05:02] LABS: Platelet Count 61 T/CUMM (130-400); White Blood Count 8.1 T/CUMM (4-12)
[2021-11-25 05:14] LABS: Calcium 7.3 MG/DL (8.5-10.1); Osmolality,Calculated 282.1 MOS/KG (273-304); Potassium 3.6 MMOL/L (3.5-5.1)
[2021-11-25 05:20] LABS: Hypochromia 1+; Microcytosis 1+; Ovalocytes Few; Platelet Estimate Decreased
[2021-11-25] MEDS: VANCOMYCIN INJ 1,250 MG in SODIUM CHLORIDE 0.9% 250 ML IV SCH (09:20)
[2021-11-25] MEDS: PANTOPRAZOLE 40 MG TABLET PO SCH (10:02)
[2021-11-25] MEDS: MIDODRINE 5 MG TABLET PO SCH ×3 (10:02→21:47)
[2021-11-25] MEDS: OXYBUTYNIN XL 10 MG TABLET PO SCH (10:02)
[2021-11-25] MEDS: MULTIVITAMIN (BEROCCA) TABLET PO SCH (10:02)
[2021-11-25] MEDS: FERROUS SULFATE 325 MG TABLET PO SCH ×2 (10:02→21:47)
[2021-11-25] MEDS: INSULIN REGULAR 100 UNIT/ML SUBCUT SCH ×4 (10:10→21:51)
[2021-11-25] MEDS: LACTULOSE 20 GM/30 ML UDCUP PO SCH ×3 (10:10→21:51)
[2021-11-25] MEDS: MENTHOL/ZINC OXIDE OINT 71 GM JAR TOP SCH ×3 (10:10→21:48)
[2021-11-25] MEDS: NYSTATIN POWDER 15 GM BOTTLE TOP SCH ×3 (10:10→21:47)
[2021-11-25] MEDS: OXYBUTYNIN XL 15 MG TABLET PO SCH (21:51)
[2021-11-26 05:43] LABS: Basophils # 0.1 10*3/uL (0.0-0.2); Basophils % 0.7 % (0.0-0.8); Eosinophils # 0.1 10*3/uL (0.0-0.87); Eosinophils % 1.2 % (0.00-10.9); Hematocrit 23.7 VOL% (42.0-52.0); Hemoglobin 7.9 GM/DL (14.0-18.0); Immature Granulocytes % 0.6 %; Immature Granulocytes Absolute 0.05 #; Lymphocytes % 12.6 % (21.2-54.2); Mean Corpuscular HGB Conc 33.3 GM/DL (32-36); Mean Corpuscular Volume 92.9 FL (87-102); Mean Platelet Volume 10.7 FL (9.6-12.0); Monocytes % 6.7 % (1.7-12.7); Neutrophils % 78.2 % (38.7-73.9); Platelet Count 65 T/CUMM (130-400); Red Blood Count 2.55 MC/CUMM (3.8-5.5); Red Cell Distribution Width 16.5 % (9.3-17.3)
[2021-11-26 06:10] LABS: Hypochromia 1+; Microcytosis 1+; Platelet Estimate Decreased
[2021-11-26 06:12] LABS: Calcium 7.3 MG/DL (8.5-10.1); Osmolality,Calculated 282.1 MOS/KG (273-304); Potassium 3.2 MMOL/L (3.5-5.1)
[2021-11-26] MEDS: INSULIN REGULAR 100 UNIT/ML SUBCUT SCH ×4 (07:39→21:23)
[2021-11-26] MEDS ORDERED: MAGNESIUM SULF RIDER 4 GM/100 ML PREMIX IV ONE (07:52)
[2021-11-26] MEDS: LACTULOSE 20 GM/30 ML UDCUP PO SCH ×3 (09:24→20:26)
[2021-11-26] MEDS: OXYBUTYNIN XL 10 MG TABLET PO SCH (09:25)
[2021-11-26] MEDS: MULTIVITAMIN (BEROCCA) TABLET PO SCH (09:25)
[2021-11-26] MEDS: PANTOPRAZOLE 40 MG TABLET PO SCH (09:25)
[2021-11-26] MEDS: MIDODRINE 5 MG TABLET PO SCH ×3 (09:25→20:25)
[2021-11-26] MEDS: FERROUS SULFATE 325 MG TABLET PO SCH ×2 (09:25→20:26)
[2021-11-26] MEDS: MENTHOL/ZINC OXIDE OINT 71 GM JAR TOP SCH ×3 (09:53→20:36)
[2021-11-26] MEDS: NYSTATIN POWDER 15 GM BOTTLE TOP SCH ×3 (09:54→20:26)
[2021-11-26] MEDS ORDERED: POTASSIUM BICARB EFFERVESCENT 20 MEQ TAB.EFF PO ONE (10:30)
[2021-11-26] MEDS: VANCOMYCIN INJ 1,250 MG in SODIUM CHLORIDE 0.9% 250 ML IV SCH (11:04)
[2021-11-26] MEDS: OXYBUTYNIN XL 15 MG TABLET PO SCH (20:25)
[2021-11-27] MEDS: ACETAMINOPHEN 325 MG TABLET PO PRN ×2 (00:47→21:35)
[2021-11-27 06:41] LABS: Basophils # 0.1 10*3/uL (0.0-0.2); Eosinophils # 0.1 10*3/uL (0.0-0.87); Hematocrit 23.8 VOL% (42.0-52.0); Hemoglobin 7.8 GM/DL (14.0-18.0); Immature Granulocytes % 0.7 %; Immature Granulocytes Absolute 0.05 #; Lymphocytes # 1.1 10*3/uL (1.4-4.0); Lymphocytes % 16.1 % (21.2-54.2); Mean Corpuscular HGB Conc 32.8 GM/DL (32-36); Mean Corpuscular Volume 92.2 FL (87-102); Mean Platelet Volume 9.9 FL (9.6-12.0); Neutrophils % 73.2 % (38.7-73.9); Red Blood Count 2.58 MC/CUMM (3.8-5.5); Red Cell Distribution Width 16.7 % (9.3-17.3)
[2021-11-27 06:56] LABS: Platelet Count 67 T/CUMM (130-400)
[2021-11-27 07:01] LABS: Calcium 7.3 MG/DL (8.5-10.1); Potassium 3.3 MMOL/L (3.5-5.1)
[2021-11-27 07:05] LABS: Hypochromia 1+; Microcytosis 1+
[2021-11-27 07:06] LABS: Platelet Estimate Decreased
[2021-11-27] MEDS: INSULIN REGULAR 100 UNIT/ML SUBCUT SCH ×4 (07:52→21:36)
[2021-11-27] MEDS: OXYBUTYNIN XL 15 MG TABLET PO SCH ×2 (08:27→21:35)
[2021-11-27] MEDS: MIDODRINE 5 MG TABLET PO SCH ×3 (08:27→21:35)
[2021-11-27] MEDS: MULTIVITAMIN (BEROCCA) TABLET PO SCH (08:28)
[2021-11-27] MEDS: FERROUS SULFATE 325 MG TABLET PO SCH ×2 (08:28→21:35)
[2021-11-27] MEDS: PANTOPRAZOLE 40 MG TABLET PO SCH (08:28)
[2021-11-27] MEDS: VANCOMYCIN INJ 1,250 MG in SODIUM CHLORIDE 0.9% 250 ML IV SCH (09:00)
[2021-11-27] MEDS: OXYBUTYNIN XL 10 MG TABLET PO SCH (09:00)
[2021-11-27] MEDS: NYSTATIN POWDER 15 GM BOTTLE TOP SCH ×3 (09:00→21:36)
[2021-11-27] MEDS: LACTULOSE 20 GM/30 ML UDCUP PO SCH ×3 (09:00→21:36)
[2021-11-27] MEDS: MENTHOL/ZINC OXIDE OINT 71 GM JAR TOP SCH ×3 (09:00→21:36)
[2021-11-28 05:44] LABS: Basophils # 0.1 10*3/uL (0.0-0.2); Basophils % 0.8 % (0.0-0.8); Eosinophils # 0.2 10*3/uL (0.0-0.87); Hematocrit 25.4 VOL% (42.0-52.0); Hemoglobin 8.2 GM/DL (14.0-18.0); Immature Granulocytes % 0.6 %; Immature Granulocytes Absolute 0.06 #; Lymphocytes # 1.5 10*3/uL (1.4-4.0); Lymphocytes % 14.4 % (21.2-54.2); Mean Corpuscular HGB Conc 32.3 GM/DL (32-36); Mean Corpuscular Volume 92.4 FL (87-102); Mean Platelet Volume 10.4 FL (9.6-12.0); Monocytes % 5.9 % (1.7-12.7); Neutrophils % 76.3 % (38.7-73.9); Platelet Count 82 T/CUMM (130-400); Red Blood Count 2.75 MC/CUMM (3.8-5.5); White Blood Count 10.6 T/CUMM (4-12)
[2021-11-28 05:57] LABS: Calcium 7.4 MG/DL (8.5-10.1); Potassium 3.7 MMOL/L (3.5-5.1)
[2021-11-28 06:04] LABS: Hypochromia 1+; Microcytosis 1+; Ovalocytes Slight; Platelet Estimate Decreased
[2021-11-28] MEDS: INSULIN REGULAR 100 UNIT/ML SUBCUT SCH ×4 (08:14→22:12)
[2021-11-28 08:21] LABS: Albumin 1.6 G/DL (3.4-5.0)
[2021-11-28] MEDS: PANTOPRAZOLE 40 MG TABLET PO SCH (08:58)
[2021-11-28] MEDS: FERROUS SULFATE 325 MG TABLET PO SCH ×2 (08:58→22:11)
[2021-11-28] MEDS: VANCOMYCIN INJ 1,250 MG in SODIUM CHLORIDE 0.9% 250 ML IV SCH (08:58)
[2021-11-28] MEDS: MULTIVITAMIN (BEROCCA) TABLET PO SCH (08:58)
[2021-11-28] MEDS: OXYBUTYNIN XL 10 MG TABLET PO SCH (08:58)
[2021-11-28] MEDS: MENTHOL/ZINC OXIDE OINT 71 GM JAR TOP SCH ×3 (08:58→22:11)
[2021-11-28] MEDS: NYSTATIN POWDER 15 GM BOTTLE TOP SCH ×3 (08:58→22:12)
[2021-11-28] MEDS: MIDODRINE 5 MG TABLET PO SCH ×3 (08:58→22:11)
[2021-11-28] MEDS: LACTULOSE 20 GM/30 ML UDCUP PO SCH ×3 (09:00→22:12)
[2021-11-28] MEDS: PIPERACILLIN/TAZOBACTAM 3,375 MG in SODIUM CHLORIDE 0.9% 100 ML IV SCH ×3 (13:20→22:30)
[2021-11-28] MEDS: OXYBUTYNIN XL 15 MG TABLET PO SCH (22:11)
[2021-11-28] MEDS: ACETAMINOPHEN 325 MG TABLET PO PRN (22:11)
[2021-11-29] MEDS: PIPERACILLIN/TAZOBACTAM 3,375 MG in SODIUM CHLORIDE 0.9% 100 ML IV SCH ×3 (05:00→22:36)
[2021-11-29 05:37] LABS: Basophils # 0.1 10*3/uL (0.0-0.2); Eosinophils # 0.3 10*3/uL (0.0-0.87); Eosinophils % 3.4 % (0.00-10.9); Hematocrit 23.8 VOL% (42.0-52.0); Hemoglobin 7.9 GM/DL (14.0-18.0); Immature Granulocytes % 0.7 %; Immature Granulocytes Absolute 0.06 #; Lymphocytes # 1.1 10*3/uL (1.4-4.0); Lymphocytes % 13.9 % (21.2-54.2); Mean Corpuscular HGB Conc 33.2 GM/DL (32-36); Mean Corpuscular Volume 94.1 FL (87-102); Mean Platelet Volume 10.3 FL (9.6-12.0); Monocytes % 6.3 % (1.7-12.7); Neutrophils % 74.7 % (38.7-73.9); Platelet Count 79 T/CUMM (130-400); Red Blood Count 2.53 MC/CUMM (3.8-5.5); Red Cell Distribution Width 17.2 % (9.3-17.3); White Blood Count 8.2 T/CUMM (4-12)
[2021-11-29 05:38] LABS: Osmolality,Calculated 283.1 MOS/KG (273-304); Potassium 3.6 MMOL/L (3.5-5.1)
[2021-11-29 06:02] LABS: Hypochromia 1+; Microcytosis 1+; Ovalocytes Slight; Platelet Estimate Decreased
[2021-11-29] MEDS: INSULIN REGULAR 100 UNIT/ML SUBCUT SCH ×4 (08:02→22:36)
[2021-11-29] MEDS: OXYBUTYNIN XL 10 MG TABLET PO SCH (08:25)
[2021-11-29] MEDS: FERROUS SULFATE 325 MG TABLET PO SCH ×2 (08:26→22:36)
[2021-11-29] MEDS: PANTOPRAZOLE 40 MG TABLET PO SCH (08:26)
[2021-11-29] MEDS: LACTULOSE 20 GM/30 ML UDCUP PO SCH ×3 (08:26→22:36)
[2021-11-29] MEDS: MULTIVITAMIN (BEROCCA) TABLET PO SCH (08:26)
[2021-11-29] MEDS: MENTHOL/ZINC OXIDE OINT 71 GM JAR TOP SCH ×3 (08:26→22:36)
[2021-11-29] MEDS: MIDODRINE 5 MG TABLET PO SCH ×3 (08:26→22:36)
[2021-11-29] MEDS: NYSTATIN POWDER 15 GM BOTTLE TOP SCH ×3 (08:27→22:36)
[2021-11-29] MEDS: VANCOMYCIN INJ 1,250 MG in SODIUM CHLORIDE 0.9% 250 ML IV SCH (08:27)
[2021-11-29] MEDS: ACETAMINOPHEN 325 MG TABLET PO PRN (22:36)
[2021-11-29] MEDS: OXYBUTYNIN XL 15 MG TABLET PO SCH (22:36)
[2021-11-30 05:12] LABS: Basophils # 0.1 10*3/uL (0.0-0.2); Eosinophils # 0.3 10*3/uL (0.0-0.87); Eosinophils % 3.9 % (0.00-10.9); Hematocrit 22.5 VOL% (42.0-52.0); Hemoglobin 7.4 GM/DL (14.0-18.0); Immature Granulocytes % 0.7 %; Immature Granulocytes Absolute 0.05 #; Lymphocytes # 1.3 10*3/uL (1.4-4.0); Lymphocytes % 16.8 % (21.2-54.2); Mean Corpuscular HGB Conc 32.9 GM/DL (32-36); Mean Corpuscular Volume 93.8 FL (87-102); Mean Platelet Volume 10.6 FL (9.6-12.0); Monocytes % 6.8 % (1.7-12.7); Neutrophils % 70.8 % (38.7-73.9); Red Cell Distribution Width 17.3 % (9.3-17.3); White Blood Count 7.6 T/CUMM (4-12)
[2021-11-30 05:17] LABS: Platelet Count 75 T/CUMM (130-400)
[2021-11-30 05:31] LABS: Hypochromia 1+; Microcytosis 1+; Ovalocytes Slight; Platelet Estimate Decreased
[2021-11-30 05:44] LABS: Calcium 7.5 MG/DL (8.5-10.1); Osmolality,Calculated 280.3 MOS/KG (273-304); Potassium 3.2 MMOL/L (3.5-5.1)
[2021-11-30] MEDS: PIPERACILLIN/TAZOBACTAM 3,375 MG in SODIUM CHLORIDE 0.9% 100 ML IV SCH ×3 (05:55→21:26)
[2021-11-30] MEDS: INSULIN REGULAR 100 UNIT/ML SUBCUT SCH ×4 (07:31→21:29)
[2021-11-30] MEDS: POTASSIUM CHLORIDE 20 MEQ TABLET PO PRN (08:45)
[2021-11-30] MEDS: MIDODRINE 5 MG TABLET PO SCH ×3 (08:45→21:27)
[2021-11-30] MEDS: FERROUS SULFATE 325 MG TABLET PO SCH ×2 (08:45→21:27)
[2021-11-30] MEDS: OXYBUTYNIN XL 10 MG TABLET PO SCH (08:46)
[2021-11-30] MEDS: PANTOPRAZOLE 40 MG TABLET PO SCH (08:46)
[2021-11-30] MEDS: MENTHOL/ZINC OXIDE OINT 71 GM JAR TOP SCH ×3 (08:46→21:28)
[2021-11-30] MEDS: NYSTATIN POWDER 15 GM BOTTLE TOP SCH ×3 (08:46→21:28)
[2021-11-30] MEDS: LACTULOSE 20 GM/30 ML UDCUP PO SCH ×3 (08:46→21:28)
[2021-11-30] MEDS: MULTIVITAMIN (BEROCCA) TABLET PO SCH (08:46)
[2021-11-30] MEDS: OXYBUTYNIN XL 15 MG TABLET PO SCH (21:27)
[2021-12-01] MEDS: ACETAMINOPHEN 325 MG TABLET PO PRN (05:05)
[2021-12-01] MEDS: PIPERACILLIN/TAZOBACTAM 3,375 MG in SODIUM CHLORIDE 0.9% 100 ML IV SCH ×2 (05:06→12:45)
[2021-12-01] MEDS: INSULIN REGULAR 100 UNIT/ML SUBCUT SCH ×4 (07:30→21:50)
[2021-12-01] MEDS: MENTHOL/ZINC OXIDE OINT 71 GM JAR TOP SCH ×3 (08:34→21:51)
[2021-12-01] MEDS: FERROUS SULFATE 325 MG TABLET PO SCH ×2 (08:34→21:49)
[2021-12-01] MEDS: OXYBUTYNIN XL 10 MG TABLET PO SCH (08:34)
[2021-12-01] MEDS: PANTOPRAZOLE 40 MG TABLET PO SCH (08:34)
[2021-12-01] MEDS: MULTIVITAMIN (BEROCCA) TABLET PO SCH (08:34)
[2021-12-01] MEDS: MIDODRINE 5 MG TABLET PO SCH ×3 (08:34→21:52)
[2021-12-01] MEDS: NYSTATIN POWDER 15 GM BOTTLE TOP SCH ×3 (08:35→21:51)
[2021-12-01 08:50] LABS: Basophils # 0.1 10*3/uL (0.0-0.2); Basophils % 0.7 % (0.0-0.8); Eosinophils # 0.3 10*3/uL (0.0-0.87); Eosinophils % 3.3 % (0.00-10.9); Hematocrit 22.9 VOL% (42.0-52.0); Hemoglobin 7.3 GM/DL (14.0-18.0); Immature Granulocytes % 0.6 %; Immature Granulocytes Absolute 0.05 #; Lymphocytes # 1.2 10*3/uL (1.4-4.0); Lymphocytes % 14.3 % (21.2-54.2); Mean Corpuscular HGB Conc 31.9 GM/DL (32-36); Mean Corpuscular Volume 95.4 FL (87-102); Mean Platelet Volume 10.2 FL (9.6-12.0); Monocytes % 5.8 % (1.7-12.7); Neutrophils % 75.3 % (38.7-73.9); Platelet Count 67 T/CUMM (130-400); White Blood Count 8.4 T/CUMM (4-12)
[2021-12-01 09:06] LABS: Calcium 7.2 MG/DL (8.5-10.1); Osmolality,Calculated 278.5 MOS/KG (273-304); Potassium 3.2 MMOL/L (3.5-5.1)
[2021-12-01 09:15] LABS: Hypochromia 1+; Microcytosis 1+; Ovalocytes Slight; Platelet Estimate Decreased
[2021-12-01] MEDS: LACTULOSE 20 GM/30 ML UDCUP PO SCH ×3 (09:57→21:51)
[2021-12-01] MEDS ORDERED: FLUCONAZOLE INJ 200 MG/100 ML PREMIX IV SCH (13:30)
[2021-12-01] MEDS: KETOCONAZOLE 2% CREAM 30 GM TUBE TOP SCH ×2 (16:40→21:51)
[2021-12-01] MEDS: OXYBUTYNIN XL 15 MG TABLET PO SCH (21:49)
[2021-12-02 05:31] LABS: Calcium 7.4 MG/DL (8.5-10.1); Osmolality,Calculated 276.5 MOS/KG (273-304); Potassium 3.4 MMOL/L (3.5-5.1)
[2021-12-02 05:32] LABS: Basophils # 0.1 10*3/uL (0.0-0.2); Basophils % 0.8 % (0.0-0.8); Eosinophils # 0.5 10*3/uL (0.0-0.87); Hematocrit 24.5 VOL% (42.0-52.0); Immature Granulocytes % 0.6 %; Immature Granulocytes Absolute 0.07 #; Lymphocytes # 1.7 10*3/uL (1.4-4.0); Lymphocytes % 15.1 % (21.2-54.2); Mean Corpuscular HGB Conc 32.7 GM/DL (32-36); Mean Corpuscular Volume 95.3 FL (87-102); Mean Platelet Volume 10.1 FL (9.6-12.0); Monocytes % 4.6 % (1.7-12.7); Neutrophils % 74.9 % (38.7-73.9); Platelet Count 100 T/CUMM (130-400); Red Blood Count 2.57 MC/CUMM (3.8-5.5); Red Cell Distribution Width 18.3 % (9.3-17.3); White Blood Count 11.1 T/CUMM (4-12)
[2021-12-02] MEDS: INSULIN REGULAR 100 UNIT/ML SUBCUT SCH ×4 (07:33→20:37)
[2021-12-02] MEDS: PANTOPRAZOLE 40 MG TABLET PO SCH (08:14)
[2021-12-02] MEDS: FERROUS SULFATE 325 MG TABLET PO SCH ×2 (08:14→20:37)
[2021-12-02] MEDS: OXYBUTYNIN XL 10 MG TABLET PO SCH (08:14)
[2021-12-02] MEDS: MULTIVITAMIN (BEROCCA) TABLET PO SCH (08:14)
[2021-12-02] MEDS: MIDODRINE 5 MG TABLET PO SCH ×3 (08:14→20:37)
[2021-12-02] MEDS: KETOCONAZOLE 2% CREAM 30 GM TUBE TOP SCH ×2 (08:16→20:36)
[2021-12-02] MEDS: MENTHOL/ZINC OXIDE OINT 71 GM JAR TOP SCH ×3 (08:16→20:35)
[2021-12-02] MEDS: LACTULOSE 20 GM/30 ML UDCUP PO SCH ×3 (08:17→20:37)
[2021-12-02] MEDS: NYSTATIN POWDER 15 GM BOTTLE TOP SCH ×3 (08:17→20:36)
[2021-12-02] MEDS ORDERED: POTASSIUM CHLORIDE 20 MEQ TABLET PO ONE (09:00)
[2021-12-02] MEDS ORDERED: MAGNESIUM SULF RIDER 2 GM/50 ML PREMIX IV ONE (09:00)
[2021-12-02] MEDS ORDERED: DEXTROSE 10% 250 ML BAG IV PRN (10:30)
[2021-12-02] MEDS: OXYBUTYNIN XL 15 MG TABLET PO SCH (20:37)
[2021-12-03 04:26] LABS: Bacteria,Urine Many /HPF (Few); Bilirubin,Urine Negative (Negative); Blood, Urine Large mg/dL (Negative); Glucose,Urine (UA) Negative (Negative); Ketones,Urine Negative (Negative); Nitrite,Urine Negative (Negative); Protein,Urine 30 MG/DL; Urine Appearance Slightly Hazy (Clear); Urine Color BLUE (Yellow); Urine Specific Gravity 1.005 (1.001-1.035); Urine Urobilinogen < 2.0 EU/DL (<2.0)
[2021-12-03 04:28] LABS: RBC,Urine 0 /HPF (0-4)
[2021-12-03 07:06] LABS: Basophils # 0.1 10*3/uL (0.0-0.2); Basophils % 0.9 % (0.0-0.8); Eosinophils # 0.4 10*3/uL (0.0-0.87); Eosinophils % 4.4 % (0.00-10.9); Hematocrit 22.7 VOL% (42.0-52.0); Hemoglobin 7.4 GM/DL (14.0-18.0); Immature Granulocytes % 0.6 %; Immature Granulocytes Absolute 0.05 #; Lymphocytes # 1.5 10*3/uL (1.4-4.0); Lymphocytes % 17.1 % (21.2-54.2); Mean Corpuscular HGB Conc 32.6 GM/DL (32-36); Mean Corpuscular Volume 95.4 FL (87-102); Mean Platelet Volume 10.5 FL (9.6-12.0); Monocytes % 4.5 % (1.7-12.7); NRBC # 0.02 10*3/uL; Neutrophils % 72.5 % (38.7-73.9); Platelet Count 90 T/CUMM (130-400); Red Blood Count 2.38 MC/CUMM (3.8-5.5); Red Cell Distribution Width 18.6 % (9.3-17.3); White Blood Count 8.5 T/CUMM (4-12)
[2021-12-03 07:21] LABS: Calcium 7.2 MG/DL (8.5-10.1); Osmolality,Calculated 283.1 MOS/KG (273-304); Potassium 3.7 MMOL/L (3.5-5.1)
[2021-12-03 07:42] LABS: Platelet Estimate Decreased
[2021-12-03 07:43] LABS: Anisocytosis 1+; Ovalocytes 1+; Poikilocytosis Slight
[2021-12-03] MEDS: INSULIN REGULAR 100 UNIT/ML SUBCUT SCH ×4 (07:57→22:08)
[2021-12-03] MEDS: MENTHOL/ZINC OXIDE OINT 71 GM JAR TOP SCH ×3 (09:57→22:12)
[2021-12-03] MEDS: NYSTATIN POWDER 15 GM BOTTLE TOP SCH ×3 (09:57→23:00)
[2021-12-03] MEDS: KETOCONAZOLE 2% CREAM 30 GM TUBE TOP SCH ×2 (09:57→22:12)
[2021-12-03] MEDS: MULTIVITAMIN (BEROCCA) TABLET PO SCH (10:30)
[2021-12-03] MEDS: MIDODRINE 5 MG TABLET PO SCH ×3 (10:30→20:50)
[2021-12-03] MEDS: OXYBUTYNIN XL 10 MG TABLET PO SCH (10:30)
[2021-12-03] MEDS: PANTOPRAZOLE 40 MG TABLET PO SCH (10:30)
[2021-12-03] MEDS: FERROUS SULFATE 325 MG TABLET PO SCH ×2 (10:30→20:50)
[2021-12-03] MEDS: LACTULOSE 20 GM/30 ML UDCUP PO SCH ×3 (11:08→22:06)
[2021-12-03] MEDS: OXYBUTYNIN XL 15 MG TABLET PO SCH (22:10)
[2021-12-04 07:27] LABS: Basophils # 0.1 10*3/uL (0.0-0.2); Eosinophils # 0.4 10*3/uL (0.0-0.87); Hematocrit 23.4 VOL% (42.0-52.0); Hemoglobin 7.7 GM/DL (14.0-18.0); Immature Granulocytes % 0.7 %; Immature Granulocytes Absolute 0.05 #; Lymphocytes # 1.4 10*3/uL (1.4-4.0); Lymphocytes % 20.1 % (21.2-54.2); Mean Corpuscular HGB Conc 32.9 GM/DL (32-36); Mean Corpuscular Volume 95.1 FL (87-102); Mean Platelet Volume 9.8 FL (9.6-12.0); Monocytes % 5.4 % (1.7-12.7); Neutrophils % 66.8 % (38.7-73.9); Platelet Count 94 T/CUMM (130-400); Red Blood Count 2.46 MC/CUMM (3.8-5.5); Red Cell Distribution Width 18.9 % (9.3-17.3); White Blood Count 7.1 T/CUMM (4-12)
[2021-12-04 07:54] LABS: Calcium 7.2 MG/DL (8.5-10.1); Osmolality,Calculated 280.3 MOS/KG (273-304); Potassium 3.6 MMOL/L (3.5-5.1)
[2021-12-04 08:13] LABS: Platelet Estimate Decreased
[2021-12-04 08:15] LABS: Macrocytosis Slight; Ovalocytes Few; Tear Drop Cells Few
[2021-12-04] MEDS: INSULIN REGULAR 100 UNIT/ML SUBCUT SCH ×4 (09:54→21:33)
[2021-12-04] MEDS: MIDODRINE 5 MG TABLET PO SCH ×3 (09:54→21:31)
[2021-12-04] MEDS: FERROUS SULFATE 325 MG TABLET PO SCH ×2 (09:55→21:31)
[2021-12-04] MEDS: KETOCONAZOLE 2% CREAM 30 GM TUBE TOP SCH ×2 (09:55→21:32)
[2021-12-04] MEDS: PANTOPRAZOLE 40 MG TABLET PO SCH (09:55)
[2021-12-04] MEDS: MULTIVITAMIN (BEROCCA) TABLET PO SCH (09:55)
[2021-12-04] MEDS: LACTULOSE 20 GM/30 ML UDCUP PO SCH ×4 (09:55→21:32)
[2021-12-04] MEDS: MENTHOL/ZINC OXIDE OINT 71 GM JAR TOP SCH ×3 (09:55→21:32)
[2021-12-04] MEDS: NYSTATIN POWDER 15 GM BOTTLE TOP SCH ×3 (09:55→21:32)
[2021-12-04] MEDS: OXYBUTYNIN XL 10 MG TABLET PO SCH (09:55)
[2021-12-04] MEDS: OXYBUTYNIN XL 15 MG TABLET PO SCH (21:31)
[2021-12-05] MEDS: INSULIN REGULAR 100 UNIT/ML SUBCUT SCH ×4 (08:15→23:30)
[2021-12-05] MEDS: FERROUS SULFATE 325 MG TABLET PO SCH ×2 (09:51→23:28)
[2021-12-05] MEDS: MENTHOL/ZINC OXIDE OINT 71 GM JAR TOP SCH ×3 (09:51→23:30)
[2021-12-05] MEDS: PANTOPRAZOLE 40 MG TABLET PO SCH (09:51)
[2021-12-05] MEDS: OXYBUTYNIN XL 10 MG TABLET PO SCH (09:51)
[2021-12-05] MEDS: NYSTATIN POWDER 15 GM BOTTLE TOP SCH ×3 (09:51→23:29)
[2021-12-05] MEDS: KETOCONAZOLE 2% CREAM 30 GM TUBE TOP SCH ×2 (09:51→23:29)
[2021-12-05] MEDS: MULTIVITAMIN (BEROCCA) TABLET PO SCH (09:51)
[2021-12-05] MEDS: MIDODRINE 5 MG TABLET PO SCH ×3 (09:52→23:28)
[2021-12-05] MEDS: LACTULOSE 20 GM/30 ML UDCUP PO SCH ×3 (11:27→23:30)
[2021-12-05] MEDS: OXYBUTYNIN XL 15 MG TABLET PO SCH (23:28)
[2021-12-06] MEDS: INSULIN REGULAR 100 UNIT/ML SUBCUT SCH ×3 (08:39→16:41)
[2021-12-06] MEDS: NYSTATIN POWDER 15 GM BOTTLE TOP SCH ×2 (10:01→16:41)
[2021-12-06] MEDS: KETOCONAZOLE 2% CREAM 30 GM TUBE TOP SCH (10:01)
[2021-12-06] MEDS: MENTHOL/ZINC OXIDE OINT 71 GM JAR TOP SCH ×2 (10:01→16:41)
[2021-12-06] MEDS: OXYBUTYNIN XL 10 MG TABLET PO SCH (10:02)
[2021-12-06] MEDS: LACTULOSE 20 GM/30 ML UDCUP PO SCH ×2 (10:02→16:40)
[2021-12-06] MEDS: FERROUS SULFATE 325 MG TABLET PO SCH ×2 (10:02→23:59)
[2021-12-06] MEDS: MULTIVITAMIN (BEROCCA) TABLET PO SCH (10:02)
[2021-12-06] MEDS: MIDODRINE 5 MG TABLET PO SCH ×3 (10:02→23:59)
[2021-12-06] MEDS: PANTOPRAZOLE 40 MG TABLET PO SCH (10:02)
[2021-12-07] MEDS: OXYBUTYNIN XL 15 MG TABLET PO SCH
[2021-12-07] MEDS: INSULIN REGULAR 100 UNIT/ML SUBCUT SCH ×2 (00:04→09:29)
[2021-12-07] MEDS: MENTHOL/ZINC OXIDE OINT 71 GM JAR TOP SCH ×2 (00:05→09:28)
[2021-12-07 07:48] VITALS: BP 117/65
[2021-12-07] MEDS: MULTIVITAMIN (BEROCCA) TABLET PO SCH (09:27)
[2021-12-07] MEDS: MIDODRINE 5 MG TABLET PO SCH (09:28)
[2021-12-07] MEDS: FERROUS SULFATE 325 MG TABLET PO SCH (09:28)
[2021-12-07] MEDS: OXYBUTYNIN XL 10 MG TABLET PO SCH (09:28)
[2021-12-07] MEDS: PANTOPRAZOLE 40 MG TABLET PO SCH (09:28)
[2021-12-07] MEDS: NYSTATIN POWDER 15 GM BOTTLE TOP SCH ×2 (09:28)
[2021-12-07] MEDS: LACTULOSE 20 GM/30 ML UDCUP PO SCH ×3 (09:28→11:02)
[2021-12-07] MEDS: KETOCONAZOLE 2% CREAM 30 GM TUBE TOP SCH ×2 (09:28)
== END 2021-12-07 10:53 | DRG 890 ==
LOC: EDBD → EDUNIT# → N.ED 12:45 → N.5E 16:42 → SUATTDRO 16:42 → N.5E 19:35
PROVIDERS: ADMIT Internal Medicine; ATTEND Internal Medicine
PROC: IRTHORA (2021-11-28 09:30)